=== PATIENT | female | born 1990 | race Caucasian/White ===

== ENCOUNTER 2019-08-03 09:36 | Inpatient (IN) | payer OTHER ==
[~2019-08-03 09:36] MED LIST: fentaNYL 100 MCG/2 ML SDV ONE
[2019-08-03] MEDS ORDERED: Nalbuphine 10 MG/1 ML Vial IVPUSH PRN (10:02)
[2019-08-03] MEDS ORDERED: Sodium Chloride 0.9% 10 ML Syringe FLUSH PRN (10:02)
[2019-08-03] MEDS ORDERED: Ondansetron 4 MG/2 ML SDV IVPUSH PRN (10:02)
[2019-08-03] MEDS ORDERED: Oxytocin/Lactated Ringers 10 UNIT/1,000 ML BAG IV SCH ×2 (10:15→13:15)
[2019-08-03] MEDS: Lactated Ringers 1,000 ML IV SCH ×2 (13:26→15:01)
--- NOTE | 2019-08-03 14:00 | PCM.LDHP ---
<Yane Leung - Last Filed: 08/03/19 15:04> L&D History of Present Illness - General Date of Service: 08/03/19 Admit Problem/Dx: Patient Status Order with Admit Dx/Problem 08/03/19 10:02 Patient Status [ADT] Routine Admission Diagnosis/Problem Admission Diagnosis/Problem Source of Information: Patient History Limitations: Reports: No Limitations - History of Present Illness Introduction:: Luiza is a 29yoF , AUDRA 08/04/2019, EGA 39 02/04, who presents to labor and delivery for induction of labor. She reports two previous vaginal deliveries with no complications. care was initiated at [facility] in [place] and transferred to [facility] in [place] 04/21/2019 at 25 weeks. Blood type is O+. 07/04/2019: group B strep negative 06/20/2019: received influenza and TDaP 05/19/2019: GTT was negative 04/29/2019: US showed single, viable IUP with normal growth interval and anatomy WNL. 03/08/2019: HIV negative, Hepatitis B Antigen negative, RPR nonreactive, Rubella equivocal, Gonorrhea and Chlamydia negative. Pap showed ASC-US, HPV negative. 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 Denies: Fever HEENT: Reports: No Symptoms Pulmonary: Reports: No Symptoms. Denies: Shortness of Breath Cardiovascular: Reports: No Symptoms, Edema (mild). Denies: Chest Pain Gastrointestinal: Reports: No Symptoms. Denies: Abdominal Pain, Nausea Genitourinary: Reports: No Symptoms Musculoskeletal: Reports: No Symptoms Skin: Reports: No Symptoms Psychiatric: Reports: No Symptoms Neurological: Reports: No Symptoms L&D Exam - Exam Exam: See Below - Vital Signs Vital Signs: Last Vital Signs Temp 97.9 F 08/03/19 09:46 Pulse 79 08/03/19 09:46 Resp 18 08/03/19 09:46 BP 134/79 08/03/19 09:46 Pulse Ox 98 08/03/19 09:46 Weight: 98.43 kg - Exam General: Alert, Oriented HEENT: Conjunctiva Clear, Mucosa Moist & [place] Neck: Supple, Trachea Midline Lungs: Clear to Auscultation, Normal Respiratory Effort Cardiovascular: Regular Rate, Regular Rhythm GI/Abdominal Exam: Normal Bowel Sounds, Soft, Non-Tender Back Exam: Full Range of Motion Extremities: Normal Inspection, Normal Capillary Refill Skin: Warm, Dry, Intact Psychiatric: Alert, Normal Affect, Normal Mood - Patient Data Lab Results Last 24 hrs: Laboratory Results - last 24 hr 08/03/19 Range/Units 10:25 WBC 7.06 (3.98-10.04) K/mm3 RBC 3.83 L (3.98-5.22) M/mm3 Hgb 11.6 (11.2-15.7) gm/dl Hct 34.0 L (34.1-44.9) % MCV 88.8 (79.4-94.8) fl MCH 30.3 (25.6-32.2) pg MCHC 34.1 (32.2-35.5) g/dl RDW Std Deviation 44.8 (36.4-46.3) fL Plt Count 194 (182-369) K/mm3 MPV 10.1 (9.4-12.3) fl Neut % (Auto) 72.8 H (34.0-71.1) % Lymph % (Auto) 17.4 L (19.3-51.7) % [place] % (Auto) 9.2 (4.7-12.5) % Eos % (Auto) 0.3 L (0.7-5.8) Baso % (Auto) 0.3 (0.1-1.2) % Neut # (Auto) 5.14 (1.56-6.13) K/mm3 Lymph # (Auto) 1.23 (1.18-3.74) K/mm3 [place] # (Auto) 0.65 H (0.24-0.36) K/mm3 Eos # (Auto) 0.02 L (0.04-0.36) K/mm3 Baso # (Auto) 0.02 (0.01-0.08) K/mm3 Result Diagrams: 08/03/19 10:25 Problem List Initiated/Reviewed/Updated: Yes Orders Last 24hrs: Active Orders 24 hr Category Date Time Status Patient Status [ADT] Routine ADT 08/03/19 10:02 Active Activity as Tolerated [RC] PFP Care 08/03/19 10:02 Active Antiembolic Devices [RC] PER UNIT ROUTINE Care 08/03/19 10:05 Active Communication Order [RC] ASDIRECTED Care 08/03/19 10:02 Active Heart Tones [RC] ASDIRECTED Care 08/03/19 10:02 Active Non Stress Test [RC] PER UNIT ROUTINE Care 08/03/19 10:02 Active Insert Kelley Catheter [Insert Urinary Catheter] [OM.PC] Care 08/03/19 10:15 Ordered Q24H Notify Provider [RC] PFP Care 08/03/19 10:02 Active Notify Provider [RC] PRN Care 08/03/19 10:02 Active PCEA Epidural [RC] ASDIRECTED Care 08/03/19 10:04 Active Peripheral IV Care [RC] . DIRECTED Care 08/03/19 10:02 Active Urinary Catheter Assessment [RC] ASDIRECTED Care 08/03/19 10:04 Active Vital Signs [RC] PER UNIT ROUTINE Care 08/03/19 10:02 Active Regular Diet [DIET] Diet 08/03/19 Lunch Active BLOOD BANK HOLD SPECIMEN [BBK] Routine Lab 08/03/19 10:02 Ordered RAPID PLASMA REAGIN,RPR [CHEM] Routine Lab 08/03/19 10:25 Received Lactated Ringers [Ringers, Lactated] 1,000 ml Med 08/03/19 10:15 Active IV ASDIRECTED Nalbuphine [Nubain] Med 08/03/19 10:02 Active 10 mg IVPUSH Q2H PRN Ondansetron [Zofran] Med 08/03/19 10:02 Active 4 mg IVPUSH Q4H PRN Oxytocin/Lactated Ringers [Pitocin in LR 10 Units/1,000 Med 08/03/19 10:15 Active ML] 10 unit in 1,000 ml IV .CONTINUOUS Oxytocin/Lactated Ringers [Pitocin in LR 10 Units/1,000 Med 08/03/19 13:15 Active ML] 10 unit in 1,000 ml IV TITRATE Sodium Chloride 0.9% [Saline Flush] Med 08/03/19 10:02 Active 10 ml FLUSH ASDIRECTED PRN Electronic Heart Tones Ext w TOCO [WOMSER] Oth 08/03/19 10:02 Ordered Routine Electronic Heart Tones Internal [WOMSER] Per Unit Ot 08/03/19 10:02 Ordered Routine Peripheral IV Insertion Adult [OM.PC] Routine Ot 08/03/19 10:02 Ordered SCD [Sequential Compression Device] [OM.PC] Routine Oth 08/03/19 10:04 Ordered Resuscitation Status Routine Resus Stat 08/03/19 10:02 Ordered Medication Orders Lactated Ringer's (Ringers, Lactated) 1,000 mls @ 100 mls/hr IV ASDIRECTED AYALA Last Admin: 08/03/19 13:26 Dose: 100 mls/hr Oxytocin/Lactated Ringer's (Pitocin In Lr 10 Units/1,000 Ml) 10 unit in 1,000 mls @ 500 mls/hr IV .CONTINUOUS AYALA Oxytocin/Lactated Ringer's (Pitocin In Lr 10 Units/1,000 Ml) 10 unit in 1,000 mls @ 12 mls/hr IV TITRATE AYALA; Protocol Last Admin: 08/03/19 13:26 Dose: 2 munits/min, 12 mls/hr Nalbuphine HCl (Nubain) 10 mg IVPUSH Q2H PRN PRN Reason: Pain Ondansetron HCl (Zofran) 4 mg IVPUSH Q4H PRN PRN Reason: Nausea/Vomiting Sodium Chloride (Saline Flush) 10 ml FLUSH ASDIRECTED PRN PRN Reason: Keep Vein Open Assessment/Plan Comment:: Assessment: 29yoF , AUDRA 08/04/2019, EGA 39 6/, presenting for elective induction of labor. Patient desires an epidural and would like to breastfeed. Her blood type is O+. Plan: 1. Augmentation of labor with pitocin and NST monitoring 2. Placement of epidural for pain control during labor 3. Admission labs: CBC and RPR 4. Administer MMR vaccine prior to discharge, rubella was equivocal 5. Support with Market Development Analyst 6. Colposcopy for ASC-US pap (HPV negative) 6 weeks <Jared Cardenas F - Last Filed: 08/05/19 08:50> L&D History of Present Illness - General Admit Problem/Dx: Admission Diagnosis/Problem Admission Diagnosis/Problem H&P Review of Systems - Review of Systems: Review Of Systems: See Below L&D Exam - Exam Exam: See Below - Vital Signs Vital Signs: Last Vital Signs Temp 36.2 C 08/04/19 16:30 Pulse 66 08/04/19 16:30 Resp 14 08/04/19 16:30 BP 126/77 08/04/19 16:30 Pulse Ox 99 08/04/19 16:30 - Patient Data Lab Results Last 24 hrs: Laboratory Results - last 24 hr 08/03/19 Range/Units 10:25 RPR Non-reactive (NONREACTIVE) Result Diagrams: 08/03/19 10:25 Problem List Initiated/Reviewed/Updated: Yes Orders Last 24hrs: Active Orders 24 hr Category Date Time Status Ready for Discharge [RC] PER UNIT ROUTINE Care 08/04/19 18:15 Active Vaccines to be Administered [RC] PER UNIT ROUTINE Care 08/04/19 16:20 Active Heat Therapy [OM.PC] PRN Oth 08/04/19 17:43 Ordered Assessment/Plan Comment:: Have reviewed the history and physical and agreed with students documentation.
[2019-08-03] MEDS ORDERED: fentaNYL 100 MCG/2 ML SDV EPIDUR PRN (14:28)
[2019-08-03] MEDS ORDERED: ePHEDrine 50 MG/ML SDV IVPUSH PRN (14:28)
[2019-08-03] MEDS ORDERED: Bupivacaine/fentaNYL/NS 100 ML Bag EPIDUR PRN (14:28)
[2019-08-03] MEDS ORDERED: diphenhydrAMINE 50 MG/ML SDV IVPUSH PRN (14:28)
--- NOTE | 2019-08-03 14:45 | PCM.PREANE ---
Preanesthetic Assessment - Anesthesia/Transfusion/Family Hx Anesthesia History: Prior Anesthesia Without Reaction Family History of Anesthesia Reaction: No Transfusion History: Prior Transfusion Without Reaction Anesthesia/Transfusion Comment: No previous problems with anesthesia or with intubation per patient. - Review of Systems General: No Symptoms Pulmonary: No Symptoms Cardiovascular: No Symptoms Gastrointestinal: No Symptoms Neurological: No Symptoms Other: Reports: None - Physical Assessment NPO Status Date: 08/03/19 NPO Status Time: 12:30 Vital Signs: Last Vital Signs Temp 36.6 C 08/03/19 09:46 Pulse 79 08/03/19 09:46 Resp 18 08/03/19 09:46 BP 134/79 08/03/19 09:46 Pulse Ox 98 08/03/19 09:46 Height: 5 ft 4 in Weight: 98.43 kg ASA Class: 1 Mental Status: Alert & Oriented x3 Airway Class: Mallampati = 2 Dentition: Reports: Normal Dentition Thyro-Mental Finger Breadths: 3 Mouth Opening Finger Breadths: 3 ROM/Head Extension: Full Lungs: Clear to Auscultation, Normal Respiratory Effort Cardiovascular: Regular Rate, Regular Rhythm - Lab Values: Laboratory Last Values WBC 7.06 K/mm3 (3.98-10.04) 08/03/19 10:25 RBC 3.83 M/mm3 (3.98-5.22) L 08/03/19 10:25 Hgb 11.6 gm/dl (11.2-15.7) 08/03/19 10:25 Hct 34.0 % (34.1-44.9) L 08/03/19 10:25 MCV 88.8 fl (79.4-94.8) 08/03/19 10:25 MCH 30.3 pg (25.6-32.2) 08/03/19 10:25 MCHC 34.1 g/dl (32.2-35.5) 08/03/19 10:25 RDW Std Deviation 44.8 fL (36.4-46.3) 08/03/19 10:25 Plt Count 194 K/mm3 (182-369) 08/03/19 10:25 MPV 10.1 fl (9.4-12.3) 08/03/19 10:25 Neut % (Auto) 72.8 % (34.0-71.1) H 08/03/19 10:25 Lymph % (Auto) 17.4 % (19.3-51.7) L 08/03/19 10:25 [place] % (Auto) 9.2 % (4.7-12.5) 08/03/19 10:25 Eos % (Auto) 0.3 (0.7-5.8) L 08/03/19 10:25 Baso % (Auto) 0.3 % (0.1-1.2) 08/03/19 10:25 Neut # (Auto) 5.14 K/mm3 (1.56-6.13) 08/03/19 10:25 Lymph # (Auto) 1.23 K/mm3 (1.18-3.74) 08/03/19 10:25 [place] # (Auto) 0.65 K/mm3 (0.24-0.36) H 08/03/19 10:25 Eos # (Auto) 0.02 K/mm3 (0.04-0.36) L 08/03/19 10:25 Baso # (Auto) 0.02 K/mm3 (0.01-0.08) 08/03/19 10:25 - Allergies Allergies/Adverse Reactions: Allergies Allergy/AdvReac Type Severity Reaction Status Date / Time No Known Allergies Allergy Verified 08/03/19 09:46 - Blood Blood Available: No - Acknowledgements Anesthesia Type Planned: Epidural Pt an Appropriate Candidate for the Planned Anesthesia: Yes Alternatives and Risks of Anesthesia Discussed w Pt/Guardian: Yes Pt/Guardian Understands and Agrees with Anesthesia Plan: Yes PreAnesthesia Questionnaire Genitourinary History: Reports: Pyelonephritis, Renal Calculus 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: , 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 , Other (See Below) Other OB/BYN History: abnormal pap Neurological History: Reports: Migraines - Infectious Disease History Infectious Disease History: Reports: Chicken Pox - Past Surgical History Female Surgical History: Reports: D&C - SUBSTANCE USE Smoking Status *Q: Never Smoker Recreational Drug Use History: No - HOME MEDS Home Medications: Home Meds [id number]/Iron Fumarate/FA/DSS [ 19 Tablet] 08/03/19 [History] - CURRENT (IN HOUSE) MEDS Current Meds: Current Medications Diphenhydramine HCl (Benadryl) 25 mg IVPUSH Q6H PRN PRN Reason: pruritis Ephedrine Sulfate (Ephedrine Sulfate) 5 mg IVPUSH ASDIRECTED PRN PRN Reason: Hypotension Fentanyl (Sublimaze) 100 mcg EPIDUR Q3H PRN PRN Reason: Pain Fentanyl/Bupivacaine HCl (Fentanyl/Bupivacaine/Ns 2 Mcg-0.125% 100 Ml) 100 ml EPIDUR CONTINUOUS PRN PRN Reason: Pain Lactated Ringer's (Ringers, Lactated) 1,000 mls @ 100 mls/hr IV ASDIRECTED AYALA Last Admin: 08/03/19 13:26 Dose: 100 mls/hr Oxytocin/Lactated Ringer's (Pitocin In Lr 10 Units/1,000 Ml) 10 unit in 1,000 mls @ 500 mls/hr IV .CONTINUOUS AYALA Oxytocin/Lactated Ringer's (Pitocin In Lr 10 Units/1,000 Ml) 10 unit in 1,000 mls @ 12 mls/hr IV TITRATE AYALA; Protocol Last Titration: 08/03/19 14:15 Dose: 3 munits/min, 18 mls/hr Nalbuphine HCl (Nubain) 10 mg IVPUSH Q2H PRN PRN Reason: Pain Ondansetron HCl (Zofran) 4 mg IVPUSH Q4H PRN PRN Reason: Nausea/Vomiting Sodium Chloride (Saline Flush) 10 ml FLUSH ASDIRECTED PRN PRN Reason: Keep Vein Open
--- NOTE | 2019-08-03 17:24 | PCM.SN ---
- Free Text/Narrative Note: Delivery note: Luiza is a 29yoF , AUDRA 08/04/2019, EGA 39 02/04, who presents to labor and delivery for induction of labor. She reports two previous vaginal deliveries with no complications. care was initiated at [facility] in [place] and transferred to [facility] in [place] 04/21/2019 at 25 weeks. Patient progressed in labor and at 1655 hrs. delivered a viable, tyler, male named Fredy Clemons. Fredy weighed 3500 g (7 pounds 11.5 ounces), had Apgars of 9 and 9 and length of 21.0 inches. Baby delivered in occiput anterior position. Baby was placed on mom's abdomen. Nose and mouth were bulb suctioned. Cord was locked pulsate times approximately 1-2 minutes and then was clamped and cut by the baby's father Deonte. The patient had a left labia minora superficial laceration which was repaired with 1 [id number] 3-0 Vicryl suture.. The placenta delivered in a Cervantes reason taste, appeared intact and complete and was discarded per patient desire. Patient received Pitocin 500 mL an hour right after delivery to facilitate increase uterine tone and decreased likelihood of bleeding. The umbilical cord had 3 vessels. Cord blood was obtained. The estimated blood loss was 200 mL. Condition: Good. Patient plans to breast- feed.
[2019-08-03] MEDS ORDERED: Acetaminophen 325 MG Tab PO PRN (17:43)
[2019-08-03] MEDS ORDERED: Benzocaine/Menthol 20%-0.5% Spray 56 GM Canister TOP PRN (17:43)
[2019-08-03] MEDS ORDERED: Docusate Sodium 100 MG Cap PO PRN (17:43)
[2019-08-03] MEDS ORDERED: Witch Hazel Medicated Pads 40/Jar TOP PRN (17:43)
[2019-08-04] MEDS: Ibuprofen 600 MG Tab PO PRN ×3 (00:28→13:55)
--- NOTE | 2019-08-04 07:36 | PCM48HPAN ---
Post Anesthesia Note - EVALUATION WITHIN 48HRS OF ANESTHETIC Vital Signs in Normal Range: Yes Patient Participated in Evaluation: Yes Respiratory Function Stable: Yes Airway Patent: Yes Cardiovascular Function Stable: Yes Hydration Status Stable: Yes Pain Control Satisfactory: Yes Nausea and Vomiting Control Satisfactory: Yes Mental Status Recovered: Yes Vital Signs: Last Vital Signs Temp 36.5 C 08/04/19 04:01 Pulse 73 08/04/19 04:01 Resp 13 08/04/19 04:01 BP 109/73 08/04/19 04:01 Pulse Ox 98 08/04/19 04:01 - COMMENTS/OBSERVATIONS Free Text/Narrative:: no anesthesia complications noted
[2019-08-04] MEDS ORDERED: Prenatal Multivitamin with Calcium/Folic Acid/Iron Tab PO SCH (09:00)
[2019-08-04] MEDS ORDERED: Measles, Mumps & Rubella Vaccine 0.5 ML SDV SUBCUT ONE (16:20)
--- NOTE | 2019-08-04 18:12 | PCM.DCSUM1 ---
Discharge Summary - Hospital Course Free Text/Narrative:: Luiza is a 29yoF , AUDRA 08/04/2019, EGA 39 02/04, who presents to labor and delivery for induction of labor. She reports two previous vaginal deliveries with no complications. care was initiated at [facility] in [place] and transferred to [facility] in [place] 04/21/2019 at 25 weeks. Patient progressed in labor and at 1655 hrs. delivered a viable, tyler, male named Fredy Clemons. Fredy weighed 3500 g (7 pounds 11.5 ounces), had Apgars of 9 and 9 and length of 21.0 inches. Baby delivered in occiput anterior position. Baby was placed on mom's abdomen. Nose and mouth were bulb suctioned. Cord was locked pulsate times approximately 1-2 minutes and then was clamped and cut by the baby's father Deonte. The patient had a left labia minora superficial laceration which was repaired with 1 [id number] 3-0 Vicryl suture.. The placenta delivered in a Cervantes reason taste, appeared intact and complete and was discarded per patient desire. Patient received Pitocin 500 mL an hour right after delivery to facilitate increase uterine tone and decreased likelihood of bleeding. The umbilical cord had 3 vessels. Cord blood was obtained. The estimated blood loss was 200 mL. patient is done well. She is ambulating well, has minimal lochia, is voiding without concerns and is breast-feeding without problems. She is desiring discharge home. Her vital signs of been stable. Condition: Good. Patient plans to breast-feed. Diagnosis: Stroke: No - Discharge Data Discharge Date: 08/04/19 Discharge Disposition: Home, Self-Care 01 Condition: Good - Referral to Home Health Primary Care Physician: Jared Cardenas MD - Patient Instructions Diet: Regular Diet as Tolerated (Nursing diet with increased calories and calcium as recommended) Activity: As Tolerated (No intercourse or tampons until bleeding resolves) Driving: May Drive Today Showering/Bathing: May Shower (May take a bath) Notify Provider of: Fever, Increased Pain, Swelling and Redness, Nausea and/or Vomiting - Discharge Plan Home Medications: Home Meds [id number]/Iron Fumarate/FA/DSS [ 19 Tablet] 08/03/19 [History] Acetaminophen [Tylenol] 650 mg PO Q4H PRN tablet 08/04/19 [Rx] Docusate Sodium [Colace] 100 mg PO BID PRN cap 08/04/19 [Rx] Ibuprofen [Motrin] 600 mg PO Q4H PRN tablet 08/04/19 [Rx] Referrals: Jared Cardenas MD [Primary Care Provider] - (Return to [facility] weeks.) - Discharge Summary/Plan Comment DC Time >30 min.: No Discharge Summary/Plan Comment: Discharge instructions: 1. Discharge home 2. Diet, activity and follow-up discussed with patient. Recommend nursing diet with increased calories and calcium. 3. Precautions given concern increased pain, bleeding, temperature, signs/ symptoms of DVT/PE. 4. Medications per home medication was printed, discussed with and given to the patient. 5. Return to clinic-Dr. Cardenas[facility] in 2 weeks. Diagnosis: Term -delivered Condition: Good - Patient Data Vitals - Most Recent: Last Vital Signs Temp 36.2 C 08/04/19 16:30 Pulse 66 08/04/19 16:30 Resp 14 08/04/19 16:30 BP 126/77 08/04/19 16:30 Pulse Ox 99 08/04/19 16:30 Weight - Most Recent: 98.43 kg I&O - Last 24 hours: Intake & Output 08/04/19 08/04/19 08/04/19 06:59 14:59 22:59 Intake Total 240 120 Balance 240 120 Med Orders - Current: Current Medications Acetaminophen (Tylenol) 650 mg PO Q4H PRN PRN Reason: mild pain or fever Benzocaine/Menthol (Dermoplast Pain Relief Dexter) 0 gm TOP ASDIRECTED PRN PRN Reason: Perineal Comfort Measure Last Admin: 08/03/19 18:59 Dose: 1 applic Docusate Sodium (Colace) 100 mg PO BID PRN PRN Reason: Constipation Ibuprofen (Motrin) 600 mg PO Q4H PRN PRN Reason: Mild pain or fever Last Admin: 08/04/19 13:55 Dose: 600 mg Prenat Multivit/Black/Iron/Folic Ac ( Plus Iron) 1 each PO DAILY AYALA Last Admin: 08/04/19 09:59 Dose: 1 each Krystal Wyman (Tucks) 1 pad TOP ASDIRECTED PRN PRN Reason: Pain Last Admin: 08/03/19 18:59 Dose: 1 applic Discontinued Medications Diphenhydramine HCl (Benadryl) 25 mg IVPUSH Q6H PRN PRN Reason: pruritis Ephedrine Sulfate (Ephedrine Sulfate) 5 mg IVPUSH ASDIRECTED PRN PRN Reason: Hypotension Fentanyl (Sublimaze) 100 mcg EPIDUR Q3H PRN PRN Reason: Pain Last Admin: 08/03/19 14:57 Dose: 100 mcg Fentanyl (Sublimaze) 100 mcg .ROUTE .STK-MED ONE Stop: 08/03/19 00:01 Fentanyl/Bupivacaine HCl (Fentanyl/Bupivacaine/Ns 2 Mcg-0.125% 100 Ml) 100 ml EPIDUR CONTINUOUS PRN PRN Reason: Pain Last Admin: 08/03/19 14:57 Dose: 100 ml Lactated Ringer's (Ringers, Lactated) 1,000 mls @ 100 mls/hr IV ASDIRECTED AYALA Last Admin: 08/03/19 15:01 Dose: 100 mls/hr Oxytocin/Lactated Ringer's (Pitocin In Lr 10 Units/1,000 Ml) 10 unit in 1,000 mls @ 500 mls/hr IV .CONTINUOUS AYALA Oxytocin/Lactated Ringer's (Pitocin In Lr 10 Units/1,000 Ml) 10 unit in 1,000 mls @ 12 mls/hr IV TITRATE AYALA; Protocol Last Titration: 08/03/19 16:56 Dose: 500 mls/hr Measles/Mumps/Rubella Vaccine Live (M-M-R Ii Vaccine) 0.5 ml SUBCUT .ONCE ONE Stop: 08/04/19 16:21 Last Admin: 08/04/19 16:33 Dose: 0.5 ml Nalbuphine HCl (Nubain) 10 mg IVPUSH Q2H PRN PRN Reason: Pain Ondansetron HCl (Zofran) 4 mg IVPUSH Q4H PRN PRN Reason: Nausea/Vomiting Sodium Chloride (Saline Flush) 10 ml FLUSH ASDIRECTED PRN PRN Reason: Keep Vein Open
[2019-08-04] MEDS ORDERED: Magnesium Hydroxide 400 MG/5 ML Susp 30 ML Cup PO ONE (18:58)
== END 2019-08-04 19:08 | DRG 807 ==
LOC: JD.OBCHECK 09:36 → JD.OB 09:38 → OBSVTOIN 16:55 → JD.OB 16:56
PROVIDERS: ADMIT Obstetrics & Gynecology; ATTEND Obstetrics & Gynecology
PROC: 10E0XZZ Delivery of Products of Conception, External Approach (ICD-10-PCS; principal; 2019-08-03)
PROC: 10907ZC Drainage of Amniotic Fluid, Therapeutic from Products of Conception, Via Natural or Artificial Opening (ICD-10-PCS; 2019-08-03)
PROC: 3E033VJ Introduction of Other Hormone into Peripheral Vein, Percutaneous Approach (ICD-10-PCS; 2019-08-03)
PROC: 0UQMXZZ Repair Vulva, External Approach (ICD-10-PCS; 2019-08-03)
PROC: 3E0R3BZ Introduction of Anesthetic Agent into Spinal Canal, Percutaneous Approach (ICD-10-PCS; 2019-08-03)
PROC: 3E0234Z Introduction of Serum, Toxoid and Vaccine into Muscle, Percutaneous Approach (ICD-10-PCS; 2019-08-04)
DX: O99.354 Diseases of the nervous system complicating childbirth (principal); Z37.0 Single live birth; G43.909 Migraine, unspecified, not intractable, without status migrainosus; O70.0 First degree perineal laceration during delivery; Z3A.39 39 weeks gestation of pregnancy; Z23 Encounter for immunization
CPT/HCPCS: 36415; 51702; 59025; 59409; 85025; 86592; 90471; 90707; A9270-GY; J2590; J3010; J7120

== ENCOUNTER 2020-01-01 20:00 | Observation (INO) | payer BC, OTHER ==
--- NOTE | 2020-01-01 20:31 | EDM.PDOC ---
ED HPI GENERAL MEDICAL PROBLEM - General Source of Information: Reports: Patient History Limitations: Reports: No Limitations - History of Present Illness Onset Date: 12/30/19 Duration: Getting Worse Location: Reports: Other (heavy bleeding and lightheaded ) Quality: Reports: Ache Severity: Mild Improves with: Reports: None Worsens with: Reports: Movement Associated Symptoms: Reports: Chest Pain (right sided chest pain with movement.) . 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 Patient reports that she had a miscarriage 2 weeks ago. She reports that she started bleeding again 3 days ago and it has been getting heavier over the past day and a half. She reports this morning that she had heavy bleeding moderate cramping and passed a "large clot." She also complains of right-sided chest pain which is reproducible with movement. She denies shortness of breath. She is a patient of Dr. King. Patient is a history of 5 para 3 miscarriage 1. She was seen and evaluated at [facility] and was transferred here for further evaluation and an ultrasound. The patient arrived via ambulance. She is hemodynamically stable at this time. She is in no apparent distress. (Marta Kessler) As above. The patient had a home test that was positive some weeks ago. She never had any care and there was never an ultrasound. As noted a couple of weeks ago she had vaginal bleeding as well as cramping and was assumed to have had a spontaneous . She has continued to bleed as noted above with some cramping. No fever or any other symptom of acute illness otherwise. 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 , Other (See Below) Other DRAW PRESS OPERATOR History: abnormal pap Neurological History: Reports: Migraines - Infectious Disease History Infectious Disease History: Reports: Chicken Pox - Past Surgical History Female Surgical History: Reports: D&C <Rhonda Kesslerry - Last Filed: 01/01/20 20:50> Social & Family History - Tobacco Use Smoking Status *Q: Never Smoker <Rhonda Kesslerry Filed: 01/01/20 20:50> ED ROS GENERAL - Review of Systems Review Of Systems: See Below Constitutional: Denies: Fever, Chills HEENT: Reports: No Symptoms Respiratory: Denies: Shortness of Breath Cardiovascular: Reports: Chest Pain Endocrine: Reports: No Symptoms GI/Abdominal: Reports: Abdominal Pain : Reports: Other (vaginal bleeding) Skin: Reports: No Symptoms Neurological: Reports: No Symptoms Psychiatric: Reports: No Symptoms Hematologic/Lymphatic: Reports: No Symptoms Immunologic: Reports: No Symptoms <VictoriaRhondaMarta Filed: 01/01/20 20:50> ED EXAM - Physical Exam Exam: See Below Exam Limited By: No Limitations General Appearance: Alert, WD/WN, No Apparent Distress Respiratory/Chest: No Respiratory Distress, Lungs Clear, Normal Breath Sounds, No Accessory Muscle Use, Chest Non-Tender, Other (Patient reports right-sided chest pain that is reproducible with movement. Denies shortness of breath.) Cardiovascular: Normal Peripheral Pulses, Regular Rate, Rhythm, No Edema, No Gallop, No JVD, No Murmur, No Rub GI/Abdominal Exam: Normal Bowel Sounds, Soft, Non-Tender Back Exam: Normal Inspection, Full Range of Motion Extremities: Normal Inspection, Normal Range of Motion, Non-Tender, No Pedal Edema, Normal Capillary Refill Neurological: Alert, Oriented, CN II-XII Intact Psychiatric: Normal Affect, Normal Mood Skin Exam: Warm, Dry, Intact, Normal Color, No Rash Lymphatic: No Adenopathy <Marta Kessler - Last Filed: 01/01/20 20:50> - Physical Exam (Female) Exam: Normal External Exam, Other (Bimanual exam was done. There was some discomfort but no shay cervical motion tenderness. No shay adnexal mass identified though there was tenderness on deep palpation on both sides in adnexal area but more so on the left. Moderate amount of dark blood on examining glove.) <Ortiz Bentley - Last Filed: 01/01/20 23:50> Course <Marta Kessler - Last Filed: 01/01/20 20:50> <Ortiz Bentley - Last Filed: 01/01/20 23:50> - Vital Signs Text/Narrative:: Luiza Saldaña is a 29-year-old female who was transferred from [facility] for further evaluation and treatment of her vaginal bleeding and lightheadedness. Patient reports that she had a miscarriage 2 weeks ago. She reports 3 days ago she started bleeding and her bleeding became heavy yesterday and today. She reports having moderate cramping and "passed a large clot." She also complains of being lightheaded. She does report having right- sided chest pain which is reproducible with movement. She denies shortness of breath. She denies any fever, chills, headaches or any other ailments. The patient did arrive via ambulance she was triaged to room to a history and physical was completed. I will order a troponin, EKG and d-dimer to rule out PE or cardiac issue. I will order a ultrasound to rule out retained products or ectopic . Patient's current pain level is 1/10. (Marta Kessler) Last Recorded V/S: Last Vital Signs Temp 36.4 C 01/01/20 20:03 Pulse 81 01/01/20 20:03 Resp 16 01/01/20 20:03 BP 105/74 01/01/20 20:03 Pulse Ox 100 01/01/20 20:03 - Orders/Labs/Meds Orders: Active Orders 24 hr Category Date Time Status EKG Documentation Completion [RC] STAT Care 01/01/20 20:27 Active Abdomen Pelvis w Cont [CT] Stat Exams 01/01/20 21:42 Taken Transvaginal Non OB [US] Stat Exams 01/01/20 20:33 Taken Sodium Chloride 0.9% [Saline Flush] Med 01/01/20 21:53 Active 10 ml FLUSH ONETIME PRN Medication Orders Sodium Chloride (Saline Flush) 10 ml FLUSH ONETIME PRN PRN Reason: KEEP VEIN OPEN Last Admin: 01/01/20 22:06 Dose: 10 ml Labs: Laboratory Tests 01/01/20 01/01/20 01/01/20 Range/Units 20:45 20:45 20:45 WBC 8.06 (3.98-10.04) K/mm3 RBC 3.71 L (3.98-5.22) M/mm3 Hgb 10.6 L (11.2-15.7) gm/dl Hct 32.8 L (34.1-44.9) % MCV 88.4 (79.4-94.8) fl MCH 28.6 (25.6-32.2) pg MCHC 32.3 (32.2-35.5) g/dl RDW Std Deviation 39.8 (36.4-46.3) fL Plt Count 303 D (182-369) K/mm3 MPV 9.5 (9.4-12.3) fl Neutrophils % (Manual) 86 H (40-60) % Band Neutrophils % 2 (0-10) % Lymphocytes % (Manual) 12 L (20-40) % Atypical Lymphs % 0 % Monocytes % (Manual) 0 L (2-10) % Eosinophils % (Manual) 0 L (0.7-5.8) % Basophils % (Manual) 0 L (0.1-1.2) Platelet Estimate Adequate RBC Morph Comment Normal D-Dimer, Quantitative 0.89 H (0.19-0.50) mg/L Sodium (136-145) mEq/L Potassium (3.5-5.1) mEq/L Chloride (98-107) mEq/L Carbon Dioxide (21-32) mEq/L Anion Gap (5-15) BUN (7-18) mg/dL Creatinine (0.55-1.02) mg/dL Est Cr Clr Drug Dosing mL/min Estimated GFR (MDRD) (>60) mL/min BUN/Creatinine Ratio (14-18) Glucose (74-106) mg/dL Calcium (8.5-10.1) mg/dL Total Bilirubin (0.2-1.0) mg/dL AST (15-37) U/L ALT (14-59) U/L Alkaline Phosphatase (46-116) U/L Troponin I < 0.017 (0.00-0.056) ng/mL Total Protein (6.4-8.2) g/dl Albumin (3.4-5.0) g/dl Globulin gm/dL Albumin/Globulin Ratio (1-2) HCG, Quant mIU/mL 01/01/20 01/01/20 Range/Units 20:45 20:45 WBC (3.98-10.04) K/mm3 RBC (3.98-5.22) M/mm3 Hgb (11.2-15.7) gm/dl Hct (34.1-44.9) % MCV (79.4-94.8) fl MCH (25.6-32.2) pg MCHC (32.2-35.5) g/dl RDW Std Deviation (36.4-46.3) fL Plt Count (182-369) K/mm3 MPV (9.4-12.3) fl Neutrophils % (Manual) (40-60) % Band Neutrophils % (0-10) % Lymphocytes % (Manual) (20-40) % Atypical Lymphs % % Monocytes % (Manual) (2-10) % Eosinophils % (Manual) (0.7-5.8) % Basophils % (Manual) (0.1-1.2) Platelet Estimate RBC Morph Comment D-Dimer, Quantitative (0.19-0.50) mg/L Sodium 139 (136-145) mEq/L Potassium 3.9 (3.5-5.1) mEq/L Chloride 105 (98-107) mEq/L Carbon Dioxide 23 (21-32) mEq/L Anion Gap 14.9 (5-15) BUN 15 (7-18) mg/dL Creatinine 0.8 (0.55-1.02) mg/dL Est Cr Clr Drug Dosing 87.99 mL/min Estimated GFR (MDRD) > 60 (>60) mL/min BUN/Creatinine Ratio 18.8 H (14-18) Glucose 112 H (74-106) mg/dL Calcium 8.6 (8.5-10.1) mg/dL Total Bilirubin 0.5 (0.2-1.0) mg/dL AST 15 (15-37) U/L ALT 16 (14-59) U/L Alkaline Phosphatase 74 (46-116) U/L Troponin I (0.00-0.056) ng/mL Total Protein 6.4 (6.4-8.2) g/dl Albumin 3.6 (3.4-5.0) g/dl Globulin 2.8 gm/dL Albumin/Globulin Ratio 1.3 (1-2) HCG, Quant 140.0 mIU/mL Meds: Medications Generic Name Dose Route Start Last Admin Trade Name Freq PRN Reason Stop Dose Admin Sodium Chloride 10 ml 01/01/20 21:53 01/01/20 22:06 Saline Flush FLUSH 10 ml ONETIME PRN Administration KEEP VEIN OPEN Discontinued Medications Generic Name Dose Route Start Last Admin Trade Name Freq PRN Reason Stop Dose Admin Iopamidol 100 ml 01/01/20 21:53 01/01/20 22:06 Isovue-300 (61%) IVPUSH 01/01/20 21:54 100 ml ONETIME ONE Administration - Re-Assessments/Exams Free Text/Narrative Re-Assessment/Exam: 01/01/20 20:50 CBC is 11.4 RBCs 4.11 hemoglobin 12.1 hematocrit 36.6, glucose 104, bun 14, creatinine 0.76, sodium 139, potassium 4.1, chloride 105, CO2 21 and calcium 9.2. (Marta Kessler) Free Text/Narrative Re-Assessment/Exam: 01/01/20 23:42 The patient had an ultrasound which showed "moderately large volume of complex free fluid in the pelvis. Poorly defined right adnexal mass." Subsequent CT with contrast shows "high density free fluid in the abdomen and pelvis which is very worrisome for hemoperitoneum." This was presented to on-call patient financial services specialist Dr. Sin. She has come in to examine the patient and will be taking her to surgery tonight. Hemoglobin has dropped a bit from the first hospital she went to 12.1 to 10.6. There is concern there may be active bleeding. There is slight d-dimer elevation. This was done because of some vague chest complaints and brief periods of tachypnea. This elevation is likely because of the . The abdomen pelvis CT was more critical so a CTA of the chest was not done additionally but patient cannot be anticoagulated at this point anyway as she may actually be bleeding. Discussed fully with patient and her . (Ortiz Bentley) Departure <Marta Kessler - Last Filed: 01/01/20 20:50> - Departure Time of Disposition: 23:48 Condition: Fair <Ortiz Bentley - Last Filed: 01/01/20 23:50> - Departure Disposition: Still A Patient 28 Clinical Impression: Hemoperitoneum (nontraumatic) - Discharge Information Referrals: PCP,None [Primary Care Provider] - Forms: ED Department Discharge Sepsis Event Note - Evaluation Sepsis Screening Result: No Definite Risk - Focused Exam Date Exam was Performed: 01/01/20 Time Exam was Performed: 20:50 <Marta Kessler - Last Filed: 01/01/20 20:50> - Focused Exam Date Exam was Performed: 01/01/20 Time Exam was Performed: 23:42 <Ortiz Bentley - Last Filed: 01/01/20 23:50> - Focused Exam Vital Signs: Vital Signs Temp Pulse Resp BP Pulse Ox 01/01/20 20:03 36.4 C 81 16 105/74 100 - My Orders Last 24 Hours: My Active Orders 01/01/20 21:42 Abdomen Pelvis w Cont [CT] Stat - Assessment/Plan Last 24 Hours: My Active Orders 01/01/20 21:42 Abdomen Pelvis w Cont [CT] Stat
[2020-01-01] MEDS ORDERED: Iopamidol 612 MG/ML 100 ML Bottle IVPUSH ONE (21:53)
[2020-01-01] MEDS ORDERED: Sodium Chloride 0.9% 10 ML Syringe FLUSH PRN (21:53)
[2020-01-01] MEDS ORDERED: Lactated Ringers 1,000 ML IV SCH (23:45)
--- NOTE | 2020-01-01 23:46 | PCM.HP.2 ---
H&P History of Present Illness - General Date of Service: 01/01/20 Source of Information: Patient History Limitations: Reports: No Limitations - History of Present Illness Initial Comments - Free Text/Narative: Patient is a 29 y/o woman who presents to ER today for chest pain and increased heavy bleeding with what was thought to be a miscarriage. Patient's most recently delivery was 08/03/2019. After this delivery was relying on exclusive breast feeding for control purposes. had er cycles come back though quickly after delivery. States LMP was 3/3 and then had a positive test the first part of November. Around the mid part of November had some heavy bleeding and so presented to [facility] clinic for evaluation. HCG done on 12/14 was 1,732. Was asked to repeat value in [place] to ensure dropping appropriately, but patient notes not having this testing done. Had done well until today where she started to notice some SOB and chest pain along with heavier vaginal bleeding. Was seen in [place] ER initially, but then recommended to transfer here to [place]. Notes has pain over her left chest and also pain with deep breaths. Rates pain as a 20/10 when occurs. This is worsened by certain movements as well. Does have some abdominal pain/ cramping, but rates this overall as mild. 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 : 5 Para: 3 LMP (Approximate): Neurological History: Reports: Migraines - Infectious Disease History Infectious Disease History: Reports: Chicken Pox - Past Surgical History Female Surgical History: Reports: D&C Social & Family History - Tobacco Use Smoking Status *Q: Never Smoker - Alcohol Use Alcohol Use History: No - Recreational Drug Use Recreational Drug Use: No H&P Review of Systems - Review of Systems: Review Of Systems: See Below General: Reports: No Symptoms Pulmonary: Reports: Shortness of Breath Cardiovascular: Reports: Chest Pain Gastrointestinal: Reports: Abdominal Pain (mild) Genitourinary: Reports: Other (bleeding) Musculoskeletal: Reports: No Symptoms Exam - Exam Exam: See Below - Vital Signs Vital Signs: Last Vital Signs Temp 36.4 C 01/01/20 20:03 Pulse 81 01/01/20 20:03 Resp 16 01/01/20 20:03 BP 105/74 01/01/20 20:03 Pulse Ox 100 01/01/20 20:03 Weight: 86.183 kg - Exam General: Alert, Oriented, Cooperative Lungs: Clear to Auscultation, Other (shallow breaths with increased RR noted) Cardiovascular: Regular Rate, Regular Rhythm GI/Abdominal Exam: Soft, Tender (mild). No: Guarding, Rebound Extremities: Normal Inspection Skin: Warm, Dry, Intact - Patient Data Lab Results Last 24 hrs: Laboratory Results - last 24 hr 01/01/20 01/01/20 01/01/20 Range/Units 20:45 20:45 20:45 WBC 8.06 (3.98-10.04) K/mm3 RBC 3.71 L (3.98-5.22) M/mm3 Hgb 10.6 L (11.2-15.7) gm/dl Hct 32.8 L (34.1-44.9) % MCV 88.4 (79.4-94.8) fl MCH 28.6 (25.6-32.2) pg MCHC 32.3 (32.2-35.5) g/dl RDW Std Deviation 39.8 (36.4-46.3) fL Plt Count 303 D (182-369) K/mm3 MPV 9.5 (9.4-12.3) fl Neutrophils % (Manual) 86 H (40-60) % Band Neutrophils % 2 (0-10) % Lymphocytes % (Manual) 12 L (20-40) % Atypical Lymphs % 0 % Monocytes % (Manual) 0 L (2-10) % Eosinophils % (Manual) 0 L (0.7-5.8) % Basophils % (Manual) 0 L (0.1-1.2) Platelet Estimate Adequate RBC Morph Comment Normal D-Dimer, Quantitative 0.89 H (0.19-0.50) mg/L Sodium (136-145) mEq/L Potassium (3.5-5.1) mEq/L Chloride (98-107) mEq/L Carbon Dioxide (21-32) mEq/L Anion Gap (5-15) BUN (7-18) mg/dL Creatinine (0.55-1.02) mg/dL Est Cr Clr Drug Dosing mL/min Estimated GFR (MDRD) (>60) mL/min BUN/Creatinine Ratio (14-18) Glucose (74-106) mg/dL Calcium (8.5-10.1) mg/dL Total Bilirubin (0.2-1.0) mg/dL AST (15-37) U/L ALT (14-59) U/L Alkaline Phosphatase (46-116) U/L Troponin I < 0.017 (0.00-0.056) ng/mL Total Protein (6.4-8.2) g/dl Albumin (3.4-5.0) g/dl Globulin gm/dL Albumin/Globulin Ratio (1-2) HCG, Quant mIU/mL 01/01/20 01/01/20 Range/Units 20:45 20:45 WBC (3.98-10.04) K/mm3 RBC (3.98-5.22) M/mm3 Hgb (11.2-15.7) gm/dl Hct (34.1-44.9) % MCV (79.4-94.8) fl MCH (25.6-32.2) pg MCHC (32.2-35.5) g/dl RDW Std Deviation (36.4-46.3) fL Plt Count (182-369) K/mm3 MPV (9.4-12.3) fl Neutrophils % (Manual) (40-60) % Band Neutrophils % (0-10) % Lymphocytes % (Manual) (20-40) % Atypical Lymphs % % Monocytes % (Manual) (2-10) % Eosinophils % (Manual) (0.7-5.8) % Basophils % (Manual) (0.1-1.2) Platelet Estimate RBC Morph Comment D-Dimer, Quantitative (0.19-0.50) mg/L Sodium 139 (136-145) mEq/L Potassium 3.9 (3.5-5.1) mEq/L Chloride 105 (98-107) mEq/L Carbon Dioxide 23 (21-32) mEq/L Anion Gap 14.9 (5-15) BUN 15 (7-18) mg/dL Creatinine 0.8 (0.55-1.02) mg/dL Est Cr Clr Drug Dosing 87.99 mL/min Estimated GFR (MDRD) > 60 (>60) mL/min BUN/Creatinine Ratio 18.8 H (14-18) Glucose 112 H (74-106) mg/dL Calcium 8.6 (8.5-10.1) mg/dL Total Bilirubin 0.5 (0.2-1.0) mg/dL AST 15 (15-37) U/L ALT 16 (14-59) U/L Alkaline Phosphatase 74 (46-116) U/L Troponin I (0.00-0.056) ng/mL Total Protein 6.4 (6.4-8.2) g/dl Albumin 3.6 (3.4-5.0) g/dl Globulin 2.8 gm/dL Albumin/Globulin Ratio 1.3 (1-2) HCG, Quant 140.0 mIU/mL Result Diagrams: 01/01/20 20:45 01/01/20 20:45 Sepsis Event Note - Evaluation Sepsis Screening Result: No Definite Risk - Focused Exam Vital Signs: Vital Signs Temp Pulse Resp BP Pulse Ox 01/01/20 20:03 36.4 C 81 16 105/74 100 Date Exam was Performed: 01/01/20 Time Exam was Performed: 23:47 Problem List Initiated/Reviewed/Updated: Yes Orders Last 24hrs: Active Orders 24 hr Category Date Time Status EKG Documentation Completion [RC] STAT Care 01/01/20 20:27 Active Abdomen Pelvis w Cont [CT] Stat Exams 01/01/20 21:42 Taken Transvaginal Non OB [US] Stat Exams 01/01/20 20:33 Taken Sodium Chloride 0.9% [Saline Flush] Med 01/01/20 21:53 Active 10 ml FLUSH ONETIME PRN Medication Orders Sodium Chloride (Saline Flush) 10 ml FLUSH ONETIME PRN PRN Reason: KEEP VEIN OPEN Last Admin: 01/01/20 22:06 Dose: 10 ml Assessment/Plan Comment:: Patient with hCG today of 140 as compared to 1732. While seems like would be appropriately dropping for miscarriage process patient did have a TVUS and CT scan which both show fluid/presumed blood in the pelvis. CT impression reads " CT confirms high density free fluid int eh abdomen and pelvis which is very worrisome for hemoperitoneum. Findings could be due to ruptured ectopic . The volume of free fluid si more than typically seen for a ruptured ovarian cyst." Patient's abdominal exam overall reassuring, however, given findings recommend proceeding first with diagnostic laparoscopy and proceeding with evacuation fo fluid and possible removal of ectopic . May need to consider afterwards evaluating/treating for PE. Patient's concerns mostly for chest pain and SOB. D-dimer elevated and troponin normal. Possible D- dimer related to and chest pain referred from hemoperitoneum, but think will likely anticoagulate after surgery and then proceed with chest CT as not done previously. Family agrees. * Labs done previously, will add on T&S * NPO for surgery * No antibiotics indicated * Consent reviewed and signed * OR made aware
--- NOTE | 2020-01-02 00:04 | PCM.PREANE ---
Preanesthetic Assessment - Anesthesia/Transfusion/Family Hx Anesthesia History: Prior Anesthesia Without Reaction Family History of Anesthesia Reaction: No Transfusion History: Prior Transfusion Without Reaction Intubation History: Unknown - Review of Systems General: No Symptoms Pulmonary: No Symptoms, Shortness of Breath Cardiovascular: Chest Pain, Lightheadedness Gastrointestinal: No Symptoms, Abdominal Pain, Nausea Neurological: No Symptoms, Headache (Migraines), Tingling (bilateral hands) Other: Reports: None, Easy Bruising - Physical Assessment NPO Status Date: 01/01/20 NPO Status Time: 11:00 Vital Signs: Last Vital Signs Temp 36.4 C 01/01/20 20:03 Pulse 81 01/01/20 20:03 Resp 16 01/01/20 20:03 BP 105/74 01/01/20 20:03 Pulse Ox 100 01/01/20 20:03 Height: 1.63 m Weight: 86.183 kg ASA Class: 2E Mental Status: Alert & Oriented x3 Airway Class: Mallampati = 2 Dentition: Reports: Normal Dentition, Caries Thyro-Mental Finger Breadths: 3 Mouth Opening Finger Breadths: 3 ROM/Head Extension: Full Lungs: Clear to Auscultation, Normal Respiratory Effort Cardiovascular: Regular Rate, Regular Rhythm, No Murmurs - Lab Values: Laboratory Last Values WBC 8.06 K/mm3 (3.98-10.04) 01/01/20 20:45 RBC 3.71 M/mm3 (3.98-5.22) L 01/01/20 20:45 Hgb 10.6 gm/dl (11.2-15.7) L 01/01/20 20:45 Hct 32.8 % (34.1-44.9) L 01/01/20 20:45 MCV 88.4 fl (79.4-94.8) 01/01/20 20:45 MCH 28.6 pg (25.6-32.2) 01/01/20 20:45 MCHC 32.3 g/dl (32.2-35.5) 01/01/20 20:45 RDW Std Deviation 39.8 fL (36.4-46.3) 01/01/20 20:45 Plt Count 303 K/mm3 (182-369) D 01/01/20 20:45 MPV 9.5 fl (9.4-12.3) 01/01/20 20:45 Neutrophils % (Manual) 86 % (40-60) H 01/01/20 20:45 Band Neutrophils % 2 % (0-10) 01/01/20 20:45 Lymphocytes % (Manual) 12 % (20-40) L 01/01/20 20:45 Atypical Lymphs % 0 % 01/01/20 20:45 Monocytes % (Manual) 0 % (2-10) L 01/01/20 20:45 Eosinophils % (Manual) 0 % (0.7-5.8) L 01/01/20 20:45 Basophils % (Manual) 0 (0.1-1.2) L 01/01/20 20:45 Platelet Estimate Adequate 01/01/20 20:45 RBC Morph Comment Normal 01/01/20 20:45 D-Dimer, Quantitative 0.89 mg/L (0.19-0.50) H 01/01/20 20:45 Sodium 139 mEq/L (136-145) 01/01/20 20:45 Potassium 3.9 mEq/L (3.5-5.1) 01/01/20 20:45 Chloride 105 mEq/L (98-107) 01/01/20 20:45 Carbon Dioxide 23 mEq/L (21-32) 01/01/20 20:45 Anion Gap 14.9 (5-15) 01/01/20 20:45 BUN 15 mg/dL (7-18) 01/01/20 20:45 Creatinine 0.8 mg/dL (0.55-1.02) 01/01/20 20:45 Est Cr Clr Drug Dosing 87.99 mL/min 01/01/20 20:45 Estimated GFR (MDRD) > 60 mL/min (>60) 01/01/20 20:45 BUN/Creatinine Ratio 18.8 (14-18) H 01/01/20 20:45 Glucose 112 mg/dL (74-106) H 01/01/20 20:45 Calcium 8.6 mg/dL (8.5-10.1) 01/01/20 20:45 Total Bilirubin 0.5 mg/dL (0.2-1.0) 01/01/20 20:45 AST 15 U/L (15-37) 01/01/20 20:45 ALT 16 U/L (14-59) 01/01/20 20:45 Alkaline Phosphatase 74 U/L (46-116) 01/01/20 20:45 Troponin I < 0.017 ng/mL (0.00-0.056) 01/01/20 20:45 Total Protein 6.4 g/dl (6.4-8.2) 01/01/20 20:45 Albumin 3.6 g/dl (3.4-5.0) 01/01/20 20:45 Globulin 2.8 gm/dL 01/01/20 20:45 Albumin/Globulin Ratio 1.3 (1-2) 01/01/20 20:45 HCG, Quant 140.0 mIU/mL 01/01/20 20:45 Above labs reviewed and noted and within acceptable ranges to proceed with procedure. 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: , 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 Other OB/BYN History: abnormal pap Neurological History: Reports: Migraines - Infectious Disease History Infectious Disease History: Reports: Chicken Pox - Past Surgical History Female Surgical History: Reports: D&C - SUBSTANCE USE Smoking Status *Q: Never Smoker Recreational Drug Use History: No - HOME MEDS Home Medications: Home Meds Prenat 115/Iron Fum/Folic/Dss [ 19 Tablet] 08/03/19 [History] Acetaminophen [Tylenol] 650 mg PO Q4H PRN tablet 08/04/19 [Rx] Docusate Sodium [Colace] 100 mg PO BID PRN cap 08/04/19 [Rx] Ibuprofen [Motrin] 600 mg PO Q4H PRN tablet 08/04/19 [Rx] - CURRENT (IN HOUSE) MEDS Current Meds: Current Medications Lactated Ringer's (Ringers, Lactated) 1,000 mls @ 125 mls/hr IV ASDIRECTED AYALA Sodium Chloride (Saline Flush) 10 ml FLUSH ONETIME PRN PRN Reason: KEEP VEIN OPEN Last Admin: 01/01/20 22:06 Dose: 10 ml Discontinued Medications Iopamidol (Isovue-300 (61%)) 100 ml IVPUSH ONETIME ONE Stop: 01/01/20 21:54 Last Admin: 01/01/20 22:06 Dose: 100 ml
[2020-01-02] MEDS ORDERED: Lactated Ringers 2,000 ML ONE (00:18)
[2020-01-02] MEDS ORDERED: Dexamethasone 4 MG/ML 5 ML MDV ONE (00:18)
[2020-01-02] MEDS ORDERED: Succinylcholine/Sod PF 100 MG/5 ML SYRINGE IV ONE (00:18)
[2020-01-02] MEDS ORDERED: Lidocaine 1% 6 ML ONE (00:18)
[2020-01-02] MEDS ORDERED: Ondansetron 4 MG/2 ML SDV ONE (00:18)
[2020-01-02] MEDS ORDERED: Rocuronium 50 MG/5 ML Vial ONE (00:18)
[2020-01-02] MEDS ORDERED: Ketorolac 30 MG/ML SDV ONE (00:18)
[2020-01-02] MEDS ORDERED: HYDROmorphone 0.5 MG/0.5 ML Syringe ONE ×2 (00:19→01:28)
[2020-01-02] MEDS ORDERED: Midazolam 1 MG/ML 2 ML SDV ONE (00:19)
[2020-01-02] MEDS ORDERED: Propofol 200 MG/20 ML SDV ONE (00:19)
[2020-01-02] MEDS ORDERED: fentaNYL 250 MCG/5 ML SDV ONE (00:20)
[2020-01-02] MEDS ORDERED: Bupivacaine 0.5% 30 ML SDV ONE (00:58)
[2020-01-02] MEDS ORDERED: ePHEDrine 50 MG/ML SDV IVPUSH PRN (01:04)
[2020-01-02] MEDS ORDERED: diphenhydrAMINE 50 MG/ML SDV IVPUSH PRN (01:04)
[2020-01-02] MEDS ORDERED: fentaNYL 100 MCG/2 ML SDV IVPUSH PRN (01:04)
[2020-01-02] MEDS ORDERED: Ondansetron 4 MG/2 ML SDV IVPUSH PRN ×2 (01:04→03:16)
[2020-01-02] MEDS ORDERED: HYDROmorphone 0.5 MG/0.5 ML Syringe IVPUSH PRN (01:05)
[2020-01-02] MEDS ORDERED: Phenylephrine 1 MG in Sodium Chloride 0.9% 10 ML IV SCH (01:15)
--- NOTE | 2020-01-02 02:09 | PCM.OPNOTE ---
- General Post-Op/Procedure Note Date of Surgery/Procedure: 01/02/20 Operative Procedure(s): Diagnostic laparoscopy. Evacuation of hemoperitoneum. Removal of residual presumed ectopic tissue Findings: Intraabdominal evaluation with a large amount of blood and clot noted throughout the pelvis. Once removed able to left ovary and fallopian tube appear normal. Uterus also normal. Right fallopian tube also appears normal without dilation or bleeding . Right ovary grossly normal. In ovarian fossa on right is thicker tissue adherent to peritoneum thought to be likely residual ectopic Pre Op Diagnosis: Chest pain/SOB. Presumed hemoperitoneum on TVUS and CT in setting of positive hCG - concerns for ruptured ectopic Post-Op Diagnosis: Hemoperioneum. Presumed ectopic in right ovarian fossa - either abdominal ectopic or expelled from fallopian tube Anesthesia Technique: General ET Tube Primary Surgeon: Desiree Sin Anesthesia Provider: Jeanette Ballesteros Pathology: Tissue from right ovarian fossa removed and sent to pathology Fluid Replacement, Intraop: 1,800 Output, Urine Amount: 35 EBL in mLs: 700 (Old clot and blood in abdomen at initiation of surgery) Complications: None Condition: Good Free Text/Narrative:: The risks, benefits, indications, potential complications, and alternatives were explained to the patient and informed consent obtained. The patient was taken to the Operating Room where general anesthesia was induced without complication. The patient was placed in dorsal lithotomy with Kamran Stirrups. The patient was then prepped and draped in the usual sterile fashion.� A sterile bivalve speculum was placed into the vagina and the anterior lip of the cervix was grasped with a single tooth tenaculum. A [employer] uterine manipulator was then advanced into the cervix and attached to allow uterine manipulation throughout the procedure. The tenaculum and speculum were then removed. Attention was then turned to the patient�s abdomen where a Veress needle was inserted into the abdomen while tenting the abdominal wall. Intraabdominal placement was confirmed with a drop test using a saline filled syringe and low intraabdominal pressure on low flow. A vertical infraumbilical incision was made in the umbilical fold and the 5 mm blunt trocar was inserted with the 5 mm laparoscope inserted through the trocar for direct visualization of abdominal entry through the clear view lens. Once intraabdominal placement was confirmed, the blunt obturator was removed and the laparoscope was inserted and exam of the patient's abdomen revealed the findings detailed above. Attention was turned to placement of the accessory ports. Both ports were placed approximately 10 cm lateral and 2-3 cm below the level of the first incision. A 5 mm skin incision was made in the left lower quadrant and a 5 mm trocar was inserted into the abdomen under direct visualization with care to avoid the abdominal wall vasculature.� A second port was placed through a 10 mm skin incision in the right lower quadrant. A 10 mm trocar was inserted into the abdomen under direct visualization with care to avoid the abdominal wall vasculature.� Suction first performed of large volume of blood and clot noted in the pelvis. After this step completed it was noted that tissue with appearance of an ectopic was in the right ovarian fossa. Grasper was used to peel this tissue off from the peritoneum. Was sent to pathology for further evaluation. No active bleeding seen from either fallopian tube identified. Abdomen then copiously suction irrigated. Hemant-Seal placed along bed where ectopic thought to have resided. Hemostasis noted. The right trocar was removed and Yoel bojorquez closure device inserted. Suture of 0 vicryl placed through closer device and used to reapproximate fascia. Next the left lower quadrant trocar was removed. The pneumoperitoneum was allowed to escape. The umbilical trocar and the camera were removed from the abdomen. 0.25% Marcaine was injected into the subcutaneous tissue of all skin incisions for local anesthesia. The skin incisions were re-approximated with 4-0 Monocryl in a running subcuticular fashion. Dermabond was also used to seal the incisions. Hemostasis was excellent.� The vaginal instruments were all removed and hemostasis was adequate. All sponge, lap, needle, and instrument counts were correct x 2. The patient tolerated the procedure well and there were no complications.
--- NOTE | 2020-01-02 02:16 | PCM.POSTAN ---
POST ANESTHESIA ASSESSMENT - MENTAL STATUS Mental Status: Alert - VITAL SIGNS Vital Signs: Last Vital Signs Temp 98.7 01/01/20 020 Pulse 80 01/02/20 0207 Resp 15 01/02/20 0207 BP 123/67 01/02/20 0207 Pulse Ox 100 01/02/20 0207 - RESPIRATORY Respiratory Status: Respiratory Rate WNL, Airway Patent, O2 Saturation Stable, Supplemental Oxygen - CARDIOVASCULAR CV Status: Pulse Rate WNL, Blood Pressure Stable - GASTROINTESTINAL GI Status: No Symptoms - POST OP HYDRATION Hydration Status: Adequate & Stable
[2020-01-02] MEDS ORDERED: Acetaminophen/oxyCODONE 325-5 MG Tab PO PRN (03:16)
[2020-01-02] MEDS: Acetaminophen/oxyCODONE 325-5 MG Tab PO PRN ×2 (06:04→09:42)
[2020-01-02] MEDS ORDERED: Ibuprofen 400 MG Tab PO PRN (06:30)
--- NOTE | 2020-01-02 07:04 | US ---
Pelvic ultrasound: Multiple real-time images were obtained transvaginally. Comparison: Echogenic material seen within the cul-de-sac believed to represent blood. More solid abnormality is also seen within the cul-de-sac believed to represent blood clot. No myometrial abnormality is seen. Endometrial thickness is normal at 4.5 mm. Heterogeneous area noted next of the right ovary either due to blood clot or ectopic . Exophytic hemorrhagic cyst is also within the differential. This periovarian finding measures up to 6.3 cm. Impression: 1. Complicated fluid within the cul-de-sac most likely representing blood. Probable blood clot within the cul-de-sac. 2. Complicated finding next of the right ovary measuring up to 6.3 cm with differential including ectopic as well as exophytic hemorrhagic cyst. Note: Please correlate with beta hCG. Diagnostic code #5 This report was dictated in MDT I agree with preliminary report from [facility], finalized on 01/01/20, 11 PM Central Daylight Time
--- NOTE | 2020-01-02 07:04 | CT ---
CT abdomen and pelvis Technique: Multiple axial sections were obtained from above the dome of the diaphragm inferiorly through the pubic symphysis. Intravenous contrast was utilized. No oral contrast has been given. Delayed images were obtained through the bladder. Comparison: Previous pelvic ultrasound study performed earlier on the same day (8:57 PM). Findings: Fluid is identified around the liver and extends into the right paracolic gutter into the pelvis. This fluid has Hounsfield unit measurements of around the mid 30 levels which is compatible with blood. Differential remains the same as ruptured hemorrhagic cyst versus ruptured ectopic as noted on ultrasound. Visualized lung bases are clear. Liver contains no focal parenchymal abnormality. Spleen appears within normal limits. Adrenal glands show no nodule. Cyst is noted within the mid right kidney measuring 1.1 cm in size. Small nonobstructing stone is noted within the upper left kidney measuring 3.4 mm in size. Gallbladder contains no calcified gallstones. Pancreas appears normal. Aorta shows no aneurysm. No retroperitoneal adenopathy or mesenteric abnormalities are seen. Appendix not visualized with certainty. No additional pelvic abnormality is seen. Bone window settings were reviewed which appear within normal limits for the patient's age. Delayed images shows contrast within the distal ureters and within the bladder. Impression: 1. Fluid around the liver extending into the paracolic gutter on the right side and extends into the pelvis. Fluids have the Hounsfield unit measurements of blood. This blood as noted on ultrasound is most likely due to ruptured exophytic hemorrhagic cyst from the right ovary versus ruptured ectopic . 2. Other findings which are believed to be incidental and nonacute as noted above. Diagnostic code #5 This report was dictated in MDT I agree with preliminary report from [facility], finalized on 01/01/20, 11:43 PM Central Daylight Time
[2020-01-02] MEDS ORDERED: Ibuprofen 600 MG Tab PO PRN (07:15)
--- NOTE | 2020-01-02 12:39 | PCM.SURGPN ---
- General Info Date of Service: 01/02/20 POD#: 0 Functional Status: Reports: Pain Controlled, Tolerating Diet, Ambulating, Urinating - Review of Systems General: Reports: Weakness (slight) Pulmonary: Reports: No Symptoms Cardiovascular: Reports: Chest Pain (near complete resolution of prior pain) Gastrointestinal: Reports: Abdominal Pain (over right lower quadrant port) Genitourinary: Reports: No Symptoms Musculoskeletal: Reports: No Symptoms Neurological: Reports: No Symptoms - Patient Data Vitals - Most Recent: Last Vital Signs Temp 36.8 C 01/02/20 08:13 Pulse 68 01/02/20 08:13 Resp 14 01/02/20 08:13 BP 101/54 L 01/02/20 08:13 Pulse Ox 95 01/02/20 08:13 Weight - Most Recent: 86.183 kg I&O - Last 24 Hours: Intake & Output 01/01/20 01/02/20 01/02/20 22:59 06:59 14:59 Intake Total 750 120 Output Total 435 1 Balance 315 119 Lab Results Last 24 Hrs: Laboratory Results - last 24 hr 01/01/20 01/01/20 01/01/20 Range/Units 20:45 20:45 20:45 WBC 8.06 (3.98-10.04) K/mm3 RBC 3.71 L (3.98-5.22) M/mm3 Hgb 10.6 L (11.2-15.7) gm/dl Hct 32.8 L (34.1-44.9) % MCV 88.4 (79.4-94.8) fl MCH 28.6 (25.6-32.2) pg MCHC 32.3 (32.2-35.5) g/dl RDW Std Deviation 39.8 (36.4-46.3) fL Plt Count 303 D (182-369) K/mm3 MPV 9.5 (9.4-12.3) fl Neutrophils % (Manual) 86 H (40-60) % Band Neutrophils % 2 (0-10) % Lymphocytes % (Manual) 12 L (20-40) % Atypical Lymphs % 0 % Monocytes % (Manual) 0 L (2-10) % Eosinophils % (Manual) 0 L (0.7-5.8) % Basophils % (Manual) 0 L (0.1-1.2) Platelet Estimate Adequate RBC Morph Comment Normal D-Dimer, Quantitative 0.89 H (0.19-0.50) mg/L Sodium (136-145) mEq/L Potassium (3.5-5.1) mEq/L Chloride (98-107) mEq/L Carbon Dioxide (21-32) mEq/L Anion Gap (5-15) BUN (7-18) mg/dL Creatinine (0.55-1.02) mg/dL Est Cr Clr Drug Dosing mL/min Estimated GFR (MDRD) (>60) mL/min BUN/Creatinine Ratio (14-18) Glucose (74-106) mg/dL Calcium (8.5-10.1) mg/dL Total Bilirubin (0.2-1.0) mg/dL AST (15-37) U/L ALT (14-59) U/L Alkaline Phosphatase (46-116) U/L Troponin I < 0.017 (0.00-0.056) ng/mL Total Protein (6.4-8.2) g/dl Albumin (3.4-5.0) g/dl Globulin gm/dL Albumin/Globulin Ratio (1-2) HCG, Quant mIU/mL Blood Type Gel Antibody Screen 01/01/20 01/01/20 01/01/20 Range/Units 20:45 20:45 20:45 WBC (3.98-10.04) K/mm3 RBC (3.98-5.22) M/mm3 Hgb (11.2-15.7) gm/dl Hct (34.1-44.9) % MCV (79.4-94.8) fl MCH (25.6-32.2) pg MCHC (32.2-35.5) g/dl RDW Std Deviation (36.4-46.3) fL Plt Count (182-369) K/mm3 MPV (9.4-12.3) fl Neutrophils % (Manual) (40-60) % Band Neutrophils % (0-10) % Lymphocytes % (Manual) (20-40) % Atypical Lymphs % % Monocytes % (Manual) (2-10) % Eosinophils % (Manual) (0.7-5.8) % Basophils % (Manual) (0.1-1.2) Platelet Estimate RBC Morph Comment D-Dimer, Quantitative (0.19-0.50) mg/L Sodium 139 (136-145) mEq/L Potassium 3.9 (3.5-5.1) mEq/L Chloride 105 (98-107) mEq/L Carbon Dioxide 23 (21-32) mEq/L Anion Gap 14.9 (5-15) BUN 15 (7-18) mg/dL Creatinine 0.8 (0.55-1.02) mg/dL Est Cr Clr Drug Dosing 87.99 mL/min Estimated GFR (MDRD) > 60 (>60) mL/min BUN/Creatinine Ratio 18.8 H (14-18) Glucose 112 H (74-106) mg/dL Calcium 8.6 (8.5-10.1) mg/dL Total Bilirubin 0.5 (0.2-1.0) mg/dL AST 15 (15-37) U/L ALT 16 (14-59) U/L Alkaline Phosphatase 74 (46-116) U/L Troponin I (0.00-0.056) ng/mL Total Protein 6.4 (6.4-8.2) g/dl Albumin 3.6 (3.4-5.0) g/dl Globulin 2.8 gm/dL Albumin/Globulin Ratio 1.3 (1-2) HCG, Quant 140.0 mIU/mL Blood Type O POSITIVE Gel Antibody Screen Negative 01/02/20 01/02/20 Range/Units 07:34 07:34 WBC 6.26 (3.98-10.04) K/mm3 RBC 3.09 L (3.98-5.22) M/mm3 Hgb 8.8 L D (11.2-15.7) gm/dl Hct 27.7 L (34.1-44.9) % MCV 89.6 (79.4-94.8) fl MCH 28.5 (25.6-32.2) pg MCHC 31.8 L (32.2-35.5) g/dl RDW Std Deviation 40.5 (36.4-46.3) fL Plt Count 255 (182-369) K/mm3 MPV 8.9 L (9.4-12.3) fl Neutrophils % (Manual) (40-60) % Band Neutrophils % (0-10) % Lymphocytes % (Manual) (20-40) % Atypical Lymphs % % Monocytes % (Manual) (2-10) % Eosinophils % (Manual) (0.7-5.8) % Basophils % (Manual) (0.1-1.2) Platelet Estimate RBC Morph Comment D-Dimer, Quantitative (0.19-0.50) mg/L Sodium (136-145) mEq/L Potassium (3.5-5.1) mEq/L Chloride (98-107) mEq/L Carbon Dioxide (21-32) mEq/L Anion Gap (5-15) BUN (7-18) mg/dL Creatinine (0.55-1.02) mg/dL Est Cr Clr Drug Dosing mL/min Estimated GFR (MDRD) (>60) mL/min BUN/Creatinine Ratio (14-18) Glucose (74-106) mg/dL Calcium (8.5-10.1) mg/dL Total Bilirubin (0.2-1.0) mg/dL AST (15-37) U/L ALT (14-59) U/L Alkaline Phosphatase (46-116) U/L Troponin I (0.00-0.056) ng/mL Total Protein (6.4-8.2) g/dl Albumin (3.4-5.0) g/dl Globulin gm/dL Albumin/Globulin Ratio (1-2) HCG, Quant 98.0 mIU/mL Blood Type Gel Antibody Screen Med Orders - Current: Current Medications Ibuprofen (Motrin) 600 mg PO Q6H PRN PRN Reason: Pain (mild 1-3) Last Admin: 01/02/20 09:40 Dose: 600 mg Ondansetron HCl (Zofran) 4 mg IVPUSH Q4H PRN PRN Reason: Nausea/Vomiting Oxycodone/Acetaminophen (Percocet 325-5 Mg) 2 tab PO Q4H PRN PRN Reason: Pain (severe 7-10) Oxycodone/Acetaminophen (Percocet 325-5 Mg) 1 tab PO Q4H PRN PRN Reason: Pain (moderate 4-6) Last Admin: 01/02/20 09:42 Dose: 1 tab Discontinued Medications Bupivacaine HCl (Marcaine 0.5%) Confirm Administered Dose 30 ml .ROUTE .STK-MED ONE Stop: 01/02/20 00:59 Last Admin: 01/02/20 01:05 Dose: 10 ml Dexamethasone (Dexamethasone) Confirm Administered Dose 20 mg .ROUTE .STK-MED ONE Stop: 01/02/20 00:19 Diphenhydramine HCl (Benadryl) 25 mg IVPUSH Q6H PRN PRN Reason: pruritis Ephedrine Sulfate (Ephedrine Sulfate) 5 mg IVPUSH ASDIRECTED PRN PRN Reason: Hypotension Fentanyl (Sublimaze) Confirm Administered Dose 250 mcg .ROUTE .STK-MED ONE Stop: 01/02/20 00:21 Fentanyl (Sublimaze) 50 mcg IVPUSH Q5M PRN PRN Reason: Pain Glycopyrrolate () Confirm Administered Dose 1 mg .ROUTE .STK-MED ONE Stop: 01/02/20 01:19 Hydromorphone HCl (Dilaudid) Confirm Administered Dose 0.5 mg .ROUTE .STK-MED ONE Stop: 01/02/20 00:20 Hydromorphone HCl (Dilaudid) 0.5 mg IVPUSH ONETIME PRN PRN Reason: Pain Hydromorphone HCl (Dilaudid) Confirm Administered Dose 0.5 mg .ROUTE .STK-MED ONE Stop: 01/02/20 01:29 Lactated Ringer's (Ringers, Lactated) 1,000 mls @ 125 mls/hr IV ASDIRECTED AYALA Last Admin: 01/02/20 00:14 Dose: 125 mls/hr Lidocaine HCl (Xylocaine-Mpf 1%) Confirm Administered Dose 6 mls @ as directed .ROUTE .STK-MED ONE Stop: 01/02/20 00:19 Lactated Ringer's (Ringers, Lactated) Confirm Administered Dose 2,000 mls @ as directed .ROUTE .STK-MED ONE Stop: 01/02/20 00:19 Phenylephrine HCl 1 mg/ Sodium (Chloride) 10.1 mls @ 1 mls/sec IV TITRATE AYALA; Protocol Ibuprofen (Motrin) 600 mg PO Q6H PRN PRN Reason: Pain (mild 1-3) Iopamidol (Isovue-300 (61%)) 100 ml IVPUSH ONETIME ONE Stop: 01/01/20 21:54 Last Admin: 01/01/20 22:06 Dose: 100 ml Ketorolac Tromethamine (Toradol) Confirm Administered Dose 30 mg .ROUTE .STK- MED ONE Stop: 01/02/20 00:19 Midazolam HCl (Versed 1 Mg/Ml) Confirm Administered Dose 2 mg .ROUTE .STK-MED ONE Stop: 01/02/20 00:20 Neostigmine Methylsulfate (Neostigmine Methylsulfate) Confirm Administered Dose 5 mg .ROUTE .STK-MED ONE Stop: 01/02/20 01:19 Ondansetron HCl (Zofran) Confirm Administered Dose 4 mg .ROUTE .STK-MED ONE Stop: 01/02/20 00:19 Ondansetron HCl (Zofran) 4 mg IVPUSH ONETIME PRN PRN Reason: Nausea/Vomiting Propofol (Diprivan 20 Ml) Confirm Administered Dose 200 mg .ROUTE .STK-MED ONE Stop: 01/02/20 00:20 Rocuronium Keaton (Zemuron) Confirm Administered Dose 50 mg .ROUTE .STK-MED ONE Stop: 01/02/20 00:19 Sodium Chloride (Saline Flush) 10 ml FLUSH ONETIME PRN PRN Reason: KEEP VEIN OPEN Last Admin: 01/01/20 22:06 Dose: 10 ml - Exam Wound/Incisions: Healing Well General: Alert, Oriented, Cooperative Lungs: Clear to Auscultation, Normal Respiratory Effort Cardiovascular: Regular Rate, Regular Rhythm GI/Abdominal Exam: Soft, Tender (appropriate post op). No: Guarding, Rebound Extremities: Normal Inspection Skin: Warm, Dry, Intact Sepsis Event Note - Evaluation Sepsis Screening Result: No Definite Risk - Focused Exam Vital Signs: Vital Signs Temp Temp Pulse Resp BP BP Pulse Ox 01/02/20 08:13 36.8 C 68 14 101/54 L 95 01/02/20 06:55 37.0 C 70 16 98/50 L 96 01/02/20 03:04 69 16 112/83 98 01/02/20 02:55 18 106/64 99 01/02/20 02:45 37.1 C 15 117/76 95 01/02/20 02:33 01/02/20 02:30 17 126/63 100 01/02/20 02:27 01/02/20 02:15 17 106/63 100 01/02/20 02:07 37.1 C 15 123/67 100 Pulse Ox 01/02/20 08:13 01/02/20 06:55 01/02/20 03:04 01/02/20 02:55 01/02/20 02:45 01/02/20 02:33 99 01/02/20 02:30 01/02/20 02:27 96 01/02/20 02:15 01/02/20 02:07 100 Date Exam was Performed: 01/03/20 Time Exam was Performed: 11:50 - Problem List & Annotations (1) Ectopic SNOMED Code(s): 23188623 Code(s): O00.90 - UNSPECIFIED ECTOPIC WITHOUT INTRAUTERINE Status: Acute Qualifiers: Location of ectopic : unspecified location Intrauterine status: without intrauterine Qualified Code(s): O00.90 - Unspecified ectopic without intrauterine (2) Hemoperitoneum (nontraumatic) SNOMED Code(s): 28380675 Code(s): K66.1 - HEMOPERITONEUM Status: Acute - Problem List Review Problem List Initiated/Reviewed/Updated: Yes - My Orders Last 24 Hours: Active Orders 24 hr Category Date Time Status Patient Status [ADT] Routine ADT 01/02/20 03:16 Active Antiembolic Devices [RC] PER UNIT ROUTINE Care 01/02/20 00:01 Inactive Communication Order [RC] ROUTINE Care 01/02/20 01:04 Inactive Cooling Warming Measures [RC] ASDIRECTED Care 01/02/20 01:03 Inactive Notify Provider [RC] ASDIRECTED Care 01/02/20 01:04 Inactive Oxygen Therapy [RC] ASDIRECTED Care 01/02/20 01:03 Inactive Pulse Oximetry [RC] ASDIRECTED Care 01/02/20 01:03 Inactive Ready for Discharge [RC] PER UNIT ROUTINE Care 01/02/20 09:20 Active Up ad Sheryl [RC] PER UNIT ROUTINE Care 01/02/20 03:16 Active Vital Signs [RC] PER UNIT ROUTINE Care 01/02/20 03:16 Active Vital Signs [RC] Q15M Care 01/02/20 01:03 Inactive Regular Diet [DIET] Diet 01/02/20 Breakfast Active Acetaminophen/oxyCODONE [Percocet 325-5 MG] Med 01/02/20 03:16 Active 1 tab PO Q4H PRN Acetaminophen/oxyCODONE [Percocet 325-5 MG] Med 01/02/20 03:16 Active 2 tab PO Q4H PRN Ibuprofen [Motrin] Med 01/02/20 07:15 Active 600 mg PO Q6H PRN Ondansetron [Zofran] Med 01/02/20 03:16 Active 4 mg IVPUSH Q4H PRN Resuscitation Status Routine Resus Stat 01/02/20 02:10 Ordered Medication Orders Ibuprofen (Motrin) 600 mg PO Q6H PRN PRN Reason: Pain (mild 1-3) Last Admin: 01/02/20 09:40 Dose: 600 mg Ondansetron HCl (Zofran) 4 mg IVPUSH Q4H PRN PRN Reason: Nausea/Vomiting Oxycodone/Acetaminophen (Percocet 325-5 Mg) 2 tab PO Q4H PRN PRN Reason: Pain (severe 7-10) Oxycodone/Acetaminophen (Percocet 325-5 Mg) 1 tab PO Q4H PRN PRN Reason: Pain (moderate 4-6) Last Admin: 01/02/20 09:42 Dose: 1 tab Admin: 01/02/20 06:04 Dose: 1 tab - Assessment Assessment (Free Text/Narrative):: POD#0 - Plan Plan (Free Text/Narrative):: * CBC this AM with as expected drop in Hb given amount of blood noted in abdomen. Patient feeling well. Will continue PNV and iron supplement on discharge * hCG dropping. Will follow up with primary physician, Dr. Cardenas, to ensure complete resolution * Will send Percocet for pain * Reviewed post op restrictions
--- NOTE | 2020-01-02 15:35 | PCM48HPAN ---
Post Anesthesia Note - EVALUATION WITHIN 48HRS OF ANESTHETIC Vital Signs in Normal Range: Yes Patient Participated in Evaluation: Yes Respiratory Function Stable: Yes Airway Patent: Yes Cardiovascular Function Stable: Yes Hydration Status Stable: Yes Pain Control Satisfactory: Yes Nausea and Vomiting Control Satisfactory: Yes Mental Status Recovered: Yes Vital Signs: Last Vital Signs Temp 36.8 C 01/02/20 08:13 Pulse 68 01/02/20 08:13 Resp 14 01/02/20 08:13 BP 101/54 L 01/02/20 08:13 Pulse Ox 95 01/02/20 08:13
== END 2020-01-02 10:20 | disposition home or self-care (01) ==
LOC: JD.ED 20:00 → JD.SDS 01-02 00:22 → UNDOADMOB 01-02 02:09 → JD.OB 01-02 02:09
PROVIDERS: ADMIT Obstetrics & Gynecology; ATTEND Obstetrics & Gynecology
DX: K66.1 Hemoperitoneum (principal); O02.89 Other abnormal products of conception; R07.9 Chest pain, unspecified; R06.02 Shortness of breath; D64.9 Anemia, unspecified; R79.1 Abnormal coagulation profile
CPT/HCPCS: 36415; 59150; 74177; 76830; 80053; 84484; 84702; 85007; 85027; 85379; 86850; 86900; 86901; 93005; 96360; 96361; 99285; A9270; J1100; J1170; J1885; J2001; J2250; J2405; J2704; J2710; J3010; J3490; J7120; Q9967; 00840; 93010; J0330

== ENCOUNTER 2020-07-11 20:16 | Day surgery (SDC) | payer BC ==
--- NOTE | 2020-07-11 17:54 | PCM.LDHP ---
L&D History of Present Illness - General Date of Service: 07/11/20 Admit Problem/Dx: Admission Diagnosis/Problem Admission Diagnosis/Problem 07/11/20 17:45 Brunilda is a 2 now para 2-0-2-2 white female diagnosed with a nonviable first trimester with cramping and bleeding consistent with a threatened miscarriage. 07/11/20 17:45 Source of Information: Patient History Limitations: Reports: No Limitations - History of Present Illness Introduction:: Brunilda is a 2 now para 2-0-2-2 white female diagnosed with a nonviable first trimester with cramping and bleeding consistent with a threatened miscarriage. Seen in clinic on the afternoon of 07/11/2020 at which time she was noted to have blood coming from the external os. Cervix was minimally dilated. Uterus is approximately 8 weeks size. She is evaluated with transvaginal ultrasound in clinic and again in the radiology department with diagnosis of nonviable, tyler, intrauterine at approximately 7-3/7 weeks gestational age. No cardiac activity or activity are noted on ultrasound. Patient has had a previous miscarriage which time she had significant bleeding resulting in anemia. She has been offered options of a management of this nonviable including: Natural passage of the tissue, Cytotec induction of labor, dilation and suction curettage under general anesthesia. She is opted for the last option as she feels this would suit her well considering she is from [place], [place], has had a significant bleeding with attempt at natural passage of the tissue with last miscarriage. The procedure of dilation suction curettage was discussed in detail. She appears understand, wishes to proceed and has signed a consent. FREIGHT BROKER history: 4 para 2-0-22. Her AUDRA is set by ultrasound at 02/15/2021. The first ultrasound was done at approximately 6 weeks gestational age. Patient has some symptoms including nausea and some breast tenderness. She has been cramping and bleeding since early this morning. She has been using heavy pads and has passed some clots. Previous obstetric history includes menarche at age 13. Cycles q. 28 days. Previous deliveries have included a male infant born 06/23/2012 at 40 weeks gestational age via spontaneous vaginal delivery. Child's name is Osiel. A female born [birth year]/04/2013 at 40 weeks gestational age. Child's name is Nela. Miscarriage at 14 weeks gestational age on 10/2017 with spontaneous miscarriage an attempt at natural passage resulting in significant bleeding and requiring dilation suction curettage. She has O+ blood therefore is not a candidate for Rh immunoglobulin therapy. Allergies: None Medications: vitamins daily Past medical history: 1. x2 2. Kidney stones during first surgery 3. Kidney infection during first 4. Miscarriage at 14 weeks gestation with her last Surgical history: Dilation and suction curettage done October 2017 Family history: Mother is alive has history of cervical and ovarian cancers. Also suffers from hypertension. Father is alive and well. 3/2 brothers are alive and well. One biological sister, 2 half sisters all alive and well. No known family history of cancer, bleeding or clotting disorders, anesthesia related issues or related issues. Social history: Patient is . is Deonte:. They live in [place], [place]. Patient does not work outside the home. She does not use any symptoms alcohol, drugs or tobacco. Review of systems: In general patient has complaints of cramping and bleeding. She is fearful that recurrence of the significant bleeding she had prior to her last D&C will recur. She is concerned about the distance from the hospital as to have to come from [place], [place]. Skin: Negative Lungs: No infectious symptoms or shortness of breath Cardiovascular: No chest pain or exercise intolerance Breasts: changes. Some tenderness noted GI: Negative : Cramping and bleeding as per HPI. Musculoskeletal: Negative Neurological: Negative Physical exam: In general the patient is well-developed, well-nourished, pleasant female of stated age in no acute distress. Skin is warm dry without lesions. HEENT, neck and back within normal limits. Lungs are clear with good breath sounds in all lung pickard. Cardiovascular exam shows regular and rhythm without murmurs. Abdomen is flat, soft, nontender without masses or organomegaly. Positive bowel sounds are noted. No inguinal lymphadenopathy or hernias are noted. Genital per speculum and bimanual shows normal external genitalia with the exception of small amount of blood on the perineum and medial aspect of thighs. There is normal BUS, pubic hair pattern. There is normal support, secretions and estrogenization vagina. Uterus is 8 weeks size, tender. Cervix is minimally dilated. Noted. Extremities and neurological exam are grossly within normal limits. Result positive. Patient is not a candidate for Rh immunoglobulin therapy. - Related Data Allergies/Adverse Reactions: Allergies Allergy/AdvReac Type Severity Reaction Status Date / Time No Known Allergies Allergy Verified 01/01/20 20:07 Home Medications: Home Meds Prenat 115/Iron Fum/Folic/Dss [ 19 Tablet] 08/03/19 [History] Docusate Sodium [Colace] 100 mg PO BID PRN cap 08/04/19 [Rx] Ibuprofen [Motrin] 600 mg PO Q4H PRN tablet 08/04/19 [Rx] Acetaminophen/oxyCODONE [Percocet 325-5 MG] 1 - 2 tab PO Q4H PRN #20 tablet 01/02/20 [Rx] Past Medical History Genitourinary History: Reports: Pyelonephritis, Renal Calculus FREIGHT BROKER History: Reports: , Spontaneous Other OB/BYN History: abnormal pap Neurological History: Reports: Migraines - Infectious Disease History Infectious Disease History: Reports: Chicken Pox - Past Surgical History Female Surgical History: Reports: D&C H&P Review of Systems - Review of Systems: Review Of Systems: See Below L&D Exam - Exam Exam: See Below Problem List Initiated/Reviewed/Updated: Yes Orders Last 24hrs: Active Orders 24 hr Category Date Time Status Ambulate [RC] PER UNIT ROUTINE Care 07/11/20 17:40 Ordered Verify Patient Consent Obtain [RC] ASDIRECTED Care 07/11/20 17:42 Ordered Vital Signs [RC] PFP Care 07/11/20 17:43 Ordered Nothing per Oral Now Diet [DIET] Diet 07/12/20 Breakfast Ordered CBC WITH AUTO DIFF [HEME] Routine Lab 07/11/20 17:40 Ordered Citric Acid/Sodium Citrate [Bicitra Solution] Med 07/11/20 17:44 Once 30 ml PO ONETIME ONE Lactated Ringers @ 125 MLS/HR(1000ml) Med 07/11/20 17:45 Ordered Lactated Ringers [Ringers, Lactated] 1,000 ml IV ASDIRECTED Metoclopramide [Reglan] Med 07/11/20 17:44 Once 10 mg IVPUSH ONETIME ONE Schedule Procedure [COMM] Stat Oth 07/11/20 17:42 Ordered Assessment/Plan Comment:: 1. 30-year-old 4 now para 2-0-2-2 white female with nonviable first trimester with pole crown-rump measurements at 7-3/7 weeks gestational age. 2. Patient with bleeding and cramping. She lives in [place], [place]. She has had history of significant bleeding with her last miscarriage requiring emergent dilation and suction curettage. 3. Blood is O+. Patient does not require Rh immunoglobulin therapy. 4. Generally healthy female. Plan: 1. We will wait an appropriate amount of time to proceed with dilation suction curettage. Anesthesia recommends at least 6 hours of n.p.o. status which would place her at approximately 8 hours tonight. 2. Dilation suction curettage under general anesthesia. Procedure, risk, benefits, alternatives of care and follow-up discussed with patient. She appears understand and wished to proceed 3. CBC, Covid19 testing prior to surgery 4. Schedule surgery per protocol. 5. Reglan and Bicitra prior to surgery
[2020-07-11] MEDS: Lactated Ringers 1,000 ML IV SCH ×2 (20:02→20:03)
[~2020-07-11 20:16] MED LIST changes: +Citric Acid/Sodium Citrate Solution 30 ML Cup ONE; +Citric Acid/Sodium Citrate Solution 30 ML Cup PO ONE; +FLU VACC QS2020-21(6MOS UP)/PF 60 MCG/0.5 ML SYRINGE IM ONE; +Ketorolac 30 MG/ML SDV ONE; +Metoclopramide 10 MG/2 ML SDV IVPUSH ONE; +Metoclopramide 10 MG/2 ML SDV ONE; -fentaNYL 100 MCG/2 ML SDV ONE
--- NOTE | 2020-07-11 20:29 | PCM.PREANE ---
Preanesthetic Assessment - Procedure Proposed Procedure: d and c - Anesthesia/Transfusion/Family Hx Anesthesia History: Prior Anesthesia Without Reaction Family History of Anesthesia Reaction: No Transfusion History: Prior Transfusion Without Reaction Intubation History: Unknown - Review of Systems General: No Symptoms Pulmonary: No Symptoms Cardiovascular: No Symptoms Gastrointestinal: Abdominal Pain (cramping) Neurological: No Symptoms - Physical Assessment NPO Status Date: 07/11/20 NPO Status Time: 15:00 ([facility]) Vital Signs: Last Vital Signs Temp 99.0 F 07/11/20 17:43 Pulse 76 07/11/20 17:43 Resp 14 07/11/20 17:43 BP 123/80 07/11/20 17:43 Pulse Ox 98 07/11/20 17:43 Height: 5 ft 6 in Weight: 82.1 kg ASA Class: 2 Mental Status: Alert & Oriented x3 Airway Class: Mallampati = 1 Dentition: Reports: Normal Dentition Thyro-Mental Finger Breadths: 3 Mouth Opening Finger Breadths: 3 ROM/Head Extension: Full Lungs: Clear to Auscultation, Normal Respiratory Effort Cardiovascular: Regular Rate, Regular Rhythm - Lab Values: Laboratory Last Values WBC 6.44 K/mm3 (3.98-10.04) 07/11/20 18:00 RBC 4.44 M/mm3 (3.98-5.22) 07/11/20 18:00 Hgb 12.2 gm/dl (11.2-15.7) D 07/11/20 18:00 Hct 37.5 % (34.1-44.9) 07/11/20 18:00 MCV 84.5 fl (79.4-94.8) D 07/11/20 18:00 MCH 27.5 pg (25.6-32.2) 07/11/20 18:00 MCHC 32.5 g/dl (32.2-35.5) 07/11/20 18:00 RDW Std Deviation 50.5 fL (36.4-46.3) H 07/11/20 18:00 Plt Count 295 K/mm3 (182-369) 07/11/20 18:00 MPV 9.4 fl (9.4-12.3) 07/11/20 18:00 Neut % (Auto) 64.1 % (34.0-71.1) 07/11/20 18:00 Lymph % (Auto) 24.8 % (19.3-51.7) 07/11/20 18:00 [place] % (Auto) 9.5 % (4.7-12.5) 07/11/20 18:00 Eos % (Auto) 0.9 (0.7-5.8) 07/11/20 18:00 Baso % (Auto) 0.5 % (0.1-1.2) 07/11/20 18:00 Neut # (Auto) 4.13 K/mm3 (1.56-6.13) 07/11/20 18:00 Lymph # (Auto) 1.60 K/mm3 (1.18-3.74) 07/11/20 18:00 [place] # (Auto) 0.61 K/mm3 (0.24-0.36) H 07/11/20 18:00 Eos # (Auto) 0.06 K/mm3 (0.04-0.36) 07/11/20 18:00 Baso # (Auto) 0.03 K/mm3 (0.01-0.08) 07/11/20 18:00 SARS-CoV-2 RNA (RACHAEL) Negative (NEGATIVE) 07/11/20 17:50 SARS CoV-2 RNA Rapid RACHAEL Negative (NEGATIVE) 07/11/20 18:38 - Allergies Allergies/Adverse Reactions: Allergies Allergy/AdvReac Type Severity Reaction Status Date / Time No Known Allergies Allergy Verified 01/01/20 20:07 - Blood Blood Available: No - Acknowledgements Anesthesia Type Planned: General Anesthesia Pt an Appropriate Candidate for the Planned Anesthesia: Yes Alternatives and Risks of Anesthesia Discussed w Pt/Guardian: Yes Pt/Guardian Understands and Agrees with Anesthesia Plan: Yes PreAnesthesia Questionnaire Cardiovascular History: Reports: None Respiratory History: Reports: None Gastrointestinal History: Reports: None Genitourinary History: Reports: Pyelonephritis, Renal Calculus PULLER OUT History: Reports: , Spontaneous Other OB/BYN History: abnormal pap Neurological History: Reports: Migraines Oncologic (Cancer) History: Reports: None - Infectious Disease History Infectious Disease History: Reports: Chicken Pox - Past Surgical History Female Surgical History: Reports: D&C, Other (See Below) (laparoscopy) - SUBSTANCE USE Tobacco Use Status *Q: Never Tobacco User Tobacco Use Within Last Twelve Months: No Second Hand Smoke Exposure: No Days Per Week of Alcohol Use: 0 Recreational Drug Use History: No - CURRENT (IN HOUSE) MEDS Current Meds: Current Medications Lactated Ringer's (Ringers, Lactated) 1,000 mls @ 125 mls/hr IV ASDIRECTED AYALA Last Admin: 07/11/20 20:03 Dose: 125 mls/hr Documented by: Discontinued Medications Citric Acid/Sodium Citrate (Bicitra Solution) 30 ml PO ONETIME ONE Stop: 07/11/20 17:45 Last Admin: 07/11/20 20:04 Dose: 30 ml Documented by: Citric Acid/Sodium Citrate (Bicitra Solution) Confirm Administered Dose 30 ml .ROUTE .STK-MED ONE Stop: 07/11/20 19:54 Last Admin: 07/11/20 20:05 Dose: Not Given Documented by: Influenza Virus Vaccine (Pharmacy To Dose - Influenza Vaccine) 1 each IM ONETIME ONE Stop: 07/11/20 19:44 Influenza Virus Vaccine (Fluzone Quad Syringe) 60 mcg IM .ONCE ONE Stop: 07/11/20 19:46 Ketorolac Tromethamine (Toradol) Confirm Administered Dose 30 mg .ROUTE .STK-MED ONE Stop: 07/11/20 20:16 Metoclopramide HCl (Reglan) 10 mg IVPUSH ONETIME ONE Stop: 07/11/20 17:45 Last Admin: 07/11/20 20:05 Dose: 10 mg Documented by: Metoclopramide HCl (Reglan) Confirm Administered Dose 10 mg .ROUTE .STK-MED ONE Stop: 07/11/20 19:55 Last Admin: 07/11/20 20:08 Dose: Not Given Documented by:
[2020-07-11] MEDS ORDERED: Lidocaine 1% 4 ML ONE (20:34)
[2020-07-11] MEDS ORDERED: Propofol 200 MG/20 ML SDV ONE (20:34)
[2020-07-11] MEDS ORDERED: Ondansetron 4 MG/2 ML SDV ONE (20:34)
[2020-07-11] MEDS ORDERED: Midazolam 1 MG/ML 2 ML SDV ONE (20:35)
[2020-07-11] MEDS ORDERED: fentaNYL 250 MCG/5 ML SDV ONE (20:35)
[2020-07-11] MEDS ORDERED: Succinylcholine/Sod PF 100 MG/5 ML SYRINGE IV ONE (20:35)
[2020-07-11] MEDS ORDERED: fentaNYL 100 MCG/2 ML SDV IVPUSH PRN (21:02)
[2020-07-11] MEDS ORDERED: Ondansetron 4 MG/2 ML SDV IVPUSH PRN ×2 (21:02→21:29)
[2020-07-11] MEDS ORDERED: HYDROmorphone 0.5 MG/0.5 ML Syringe IVPUSH PRN (21:02)
[2020-07-11] MEDS ORDERED: Methylergonovine 0.2 MG/1 ML Amp ONE (21:10)
[2020-07-11] MEDS ORDERED: Ketorolac 30 MG/ML SDV IVPUSH ONE (21:30)
--- NOTE | 2020-07-11 21:30 | PCM.POSTAN ---
POST ANESTHESIA ASSESSMENT - MENTAL STATUS Mental Status: Alert, Somnolent - VITAL SIGNS Vital Signs: Last Vital Signs Temp 99.0 F 07/11/20 17:43 Pulse 76 07/11/20 17:43 Resp 14 07/11/20 17:43 BP 123/80 07/11/20 17:43 Pulse Ox 98 07/11/20 17:43 2121 76 20 97.4 97% 110/72 - RESPIRATORY Respiratory Status: Respiratory Rate WNL, Airway Patent, O2 Saturation Stable, Supplemental Oxygen - CARDIOVASCULAR CV Status: Pulse Rate WNL, Blood Pressure Stable - GASTROINTESTINAL GI Status: No Symptoms - PAIN Pain Score: 0 - POST OP HYDRATION Hydration Status: Adequate & Stable
--- NOTE | 2020-07-11 21:34 | PCM.OPNOTE ---
- General Post-Op/Procedure Note Date of Surgery/Procedure: 07/11/20 Operative Procedure(s): Dilation and suction curettage Findings: Uterus sounded to 11 cm. Cervix was dilated to approximately 1 L. Endometrial curettings were consistent with products of conception. Uterus is approximately 8 weeks size, midline, freely mobile. Pre Op Diagnosis: Nonviable 8-week Post-Op Diagnosis: Same Anesthesia Technique: General ET Tube Primary Surgeon: Jared Cardenas Anesthesia Provider: Anyi Del Rosario Pathology: Endometrial curettings consistent with products of conception Fluid Replacement, Intraop: 200 EBL in mLs: 50 Complications: None Condition: Good Free Text/Narrative:: Surgery duration: 3 minutes The patient was taken to the operating room and placed in a supine position operating table. After adequate general endotracheal anesthesia patient was placed in a dorsal lithotomy position. Routine prep and drape was performed. A weighted speculum was placed in the vagina. Cervix is found to be dilated to approximately 1 centimeter. Uterus was sounded to approximately 11 cm. It was found to be anterior and mid position. An 8 mm suction curette was then introduced in routine fashion the endometrial cavity was evacuated. Moderate amount tissue was obtained. Findings consistent with products of conception. A medium size sharp curet was introduced and very careful fashion the endometrial cavity was curetted. It was clear of any further tissue. The suction curet was then reintroduced and small wound of blood was removed. No further tissue was removed. At this point the D&C was discontinued. The single-toothed tenaculum used to stabilize the anterior lip the cervix was removed. Blood was removed from the vagina with a stick sponge and the weighted speculum was removed from the vagina. The patient was awakened from general anesthesia. The patient was discharged from the operating room in good condition.
--- NOTE | 2020-07-11 21:37 | PCM48HPAN ---
Post Anesthesia Note - EVALUATION WITHIN 48HRS OF ANESTHETIC Vital Signs in Normal Range: Yes Patient Participated in Evaluation: Yes Respiratory Function Stable: Yes Airway Patent: Yes Cardiovascular Function Stable: Yes Hydration Status Stable: Yes Pain Control Satisfactory: Yes Nausea and Vomiting Control Satisfactory: Yes Mental Status Recovered: Yes Vital Signs: Last Vital Signs Temp 97.3 F 07/11/20 21:35 Pulse 76 07/11/20 17:43 Resp 21 H 07/11/20 21:35 BP 105/69 07/11/20 21:35 Pulse Ox 99 07/11/20 21:35 - COMMENTS/OBSERVATIONS Free Text/Narrative:: Rests- denies pain.
== END 2020-07-11 22:19 | disposition home or self-care (01) ==
LOC: JD.SDS 20:16
PROVIDERS: ATTEND Obstetrics & Gynecology
DX: O36.80X0 Pregnancy with inconclusive fetal viability, not applicable or unspecified (principal); Z79.899 Other long term (current) drug therapy
CPT/HCPCS: 36415; 59840; 85025; 87635; 90686; A9270; J0330; J1885; J2001; J2210; J2250; J2405; J2704; J2765; J3010; J7120; 01965; G0008; U0002